=== PATIENT | female | born 1965 | race Caucasian/White ===

== ENCOUNTER 2023-09-08 09:04 | Inpatient (IN) | payer OTHER, SELFPAY ==
[2023-09-08] VITALS (8 sets, daily range): BP systolic 120–149; BP diastolic 60–77; PULSE 58–84; RESP 16–18; TEMP 36.4–36.8; O2SAT 98–100; BMI 31.5; BMI 32.1
--- NOTE | 2023-09-08 09:25 | EDS_ITS ---
HPI History of Present Illness Chief Complaint: Abn Labs Informant: patient Narrative Narrative: 57-year-old female presenting to the emergency room with abdominal pain and elevated liver enzymes. Patient states that last she felt feverish and did not feel well but she felt better on Wednesday. She has been experiencing some anorexia and mild nausea. She notes a mild epigastric right upper quadrant discomfort. She saw nurse practitioner on Wednesday and had blood work drawn. Was noted that her total bilirubin was 2.6 alkaline phosphatase 311 AST of 311 ALT is 695 BUN/creatinine within normal limits. Is noted to have normal differential lipase was noted to be normal at 57 with a amylase of 61. TSH T4 noted to be stable. She does take supplemental Synthroid. There was a urine culture showed less than 10,000 units of Streptococcus anginosus. Patient was sent to the emergency room for evaluation. She has had prior cholecystectomy 2005 in [place]. She does note some dark urine. She has felt constipated over the past several days. Over the time where she felt fever she did not complain of any sore throat neck discomfort shoulder discomfort diarrhea. [facility] Medical History (Updated 09/08/23 @ 14:[address] West Villarreal, DO) Hypothyroidism Home Medications ?Medication ?Instructions ?Recorded ?Last Taken ?Type cetirizine 5 mg-pseudoephedrine ER 1 tab PO DAILY PRN allergy symptoms 09/08/23 09/07/23 History 120 mg tablet,extended release,12hr ketotifen fumarate 0.025 % (0.035 1 drp EACH EYE DAILY PRN allergy 09/08/23 09/07/23 History %) eye drops (Allergy Eye symptoms (ketotifen)) levothyroxine 75 mcg tablet 75 mcg PO DAILY thyroid 09/08/23 09/08/23 History multivitamin 1 tab PO DAILY supplement 09/08/23 09/04/23 History omega 3-dja-ouq-fish oil 60 mg-90 1 cap PO DAILY supplement 09/08/23 09/04/23 History mg-500 mg capsule (Fish Oil) phenylephrine HCl 0.5 % nasal 1 spray intranasal Q8H PRN nasal 09/08/23 09/07/23 History spray (Otis-Synephrine congestion (phenylephrine)) Allergy/AdvReac Type Severity Reaction Status Date / Time No Known Allergies Allergy Verified 09/08/23 09:05 Surgical History History of cholecystectomy Social History Smoking Status: Never smoker EXAM Physical Exam Const Vital Signs: 09/08/23 09:05 09/08/23 11:05 09/08/23 13:13 Temperature 97.6 F L Temperature Source Temporal Pulse Rate 84 80 63 Respiratory Rate 18 16 18 Blood Pressure 149/77 H 138/68 H 120/60 Blood Pressure Mean 101 91 80 Pulse Ox 100 99 99 Oxygen Delivery Method Room Air Room Air Positive well nourished and well developed General Appearance ED: well developed HEENT Reports normocephalic, head/scalp atraumatic and moist mucous membranes Eyes PERRL and EOMs intact bilaterally Eyes Narrative: Mild scleral icterus Neck no lymphadenopathy, supple and no JVD Resp normal respiratory effort and clear to auscultation bilaterally Cardio regular rate, regular rhythm and no murmurs GI normal to inspection, nondistended, normoactive bowel sounds and non-tender Palpation: soft Back/Spine no CVA tenderness and normal ROM Extremity normal to inspection General Extremety ED: Negative for edema General Extremity: Negative for edema Neuro oriented x3 and CN's II-XII intact bilaterally Sensorium / Orientation: alert Motor Exam: strength 5/5 throughout Psych mental status grossly normal Mood & Affect: Negative for depressed or tearful Skin no rashes or lesions noted and no wounds MDM MDM MDM Narrative Medical decision making narrative: Differential diagnosis includes but not limited to choledocholithiasis ascending cholangitis acute hepatitis pancreatic mass acute pancreatitis bile ducts stricture. White count is 4.2 no left shift. Hemoglobin 13.4 and platelet count of 213. LFTs show total bilirubin 3.6 with a direct bilirubin of 2.87 AST 153 ALT 552 alk phos 344 lipase is 90 urinalysis with 3+ bacteria no nitrates 0-5 white cells 0-5 red cells 0-[address] abdomen pelvis was obtained. Please see radiologist read for full details and impression. No ascites were noted. No abnormal liver contour noted. No ACE pancreatic fluid seen. Ultrasound of the gallbladder was obtained which demonstrates a common bile duct of 1.04. Case was discussed with Dr. Varma from gastroenterology. I also dis cussed the case with Dr. Stewart from the hospitalist service. Plan is admission. History & Record Review Discussion w/independent historian: Patient and Significant other Lab Data Attestation: I reviewed the patient's lab results. Labs: Laboratory Results - last 24 hr 09/08/23 09/08/23 09:28 09:35 WBC 4.2 L RBC 4.87 Hgb 13.4 Hct 42.6 MCV 87.5 MCH 27.5 MCHC 31.5 L RDW Std Deviation 45.8 H RDW Coeff of Zoe 14.4 Plt Count 213 MPV 9.6 Immature Gran % (Auto) 0.700 Neut % (Auto) 58.1 Lymph % (Auto) 26.4 [place] % (Auto) 8.6 Eos % (Auto) 5.0 Baso % (Auto) 1.2 H Absolute Neuts (auto) 2.4 Absolute Lymphs (auto) 1.11 Nucleated RBC % 0 Sodium 136 Potassium 3.4 L Chloride 105 Carbon Dioxide 29.0 Anion Gap 2 L BUN 12 Creatinine 1.01 Estim Creat Clear Calc 70.43 Est GFR (MDRD) Af Amer 72 Est GFR (MDRD) Non-Af 60 BUN/Creatinine Ratio 11.9 Glucose 93 Calcium 9.2 Total Bilirubin 3.60 H Direct Bilirubin 2.87 H AST 153 H ALT 552 H Alkaline Phosphatase 344 H Total Protein 8.3 H Albumin 3.3 Globulin 5.0 H Lipase 90 H Urine Color Yellow Urine Clarity Sl. Cloudy Urine pH 6.5 Ur Specific [place] 1.010 Urine Protein 15 H Urine Glucose (UA) Normal Urine Ketones Negative Urine Occult Blood Negative Urine Nitrite Negative Urine Bilirubin 1 H Urine Urobilinogen 1 H Ur Leukocyte Esterase 500 H Urine RBC 0-5 SEEN Urine WBC 0-5 SEEN Ur Squamous Epith Cells 0-5 SEEN Calcium Oxalate Crystal RARE Urine Bacteria 3+ Urine Mucus 0 SEEN Radiography Diagnostic Testing: Clinical Impression(s) from Imaging Studies Abdomen/Pelvis CT 09/08/23 09:25 IMPRESSION: Findings suggestive of a varices in the region of the splenic hilum. Prior cholecystectomy. I suspect a partially calcified 1.3 cm splenic artery aneurysm. Electronically Signed: Camden Alcala MD at 10:37 EDT , Management Discussion w/another healthcare provider: Hospitalist (Dr Ma) and Postage Machine Operator (Dr Varma (GI)) Discharge Plan Dx/Rx/DC Orders Clinical Impression: Common bile duct dilation, Abdominal pain, Elevated liver enzymes Disposition Disposition: Acute Care Hospital [facility]
--- NOTE | 2023-09-08 09:25 | CT_ITS ---
STUDY: CT ABDOMEN AND PELVIS WITH CONTRAST REASON FOR EXAM: Female, 57 years old. Elevated liver enzymes and pain RADIATION DOSAGE (If Supplied By Facility): CTDIvol = ( 17.38 ) mGy, DLP = ( 1146.30 ) mGycm TECHNIQUE: Transaxial images were obtained from the dome of the diaphragm to the symphysis pubis without oral contrast. IV 100mL Isovue-300 was administered. Sagittal and coronal images were reconstructed. Individualized dose optimization techniques were used for this CT. COMPARISON: None. FINDINGS: Mild degree of increased linear markings at the lung bases suggestive of linear bibasilar atelectasis. The visualized portions of the heart are within normal limits. Normal liver. There are surgical clips in the gallbladder fossa consistent with a prior cholecystectomy. Normal spleen. Questionable varices in the region of the splenic hilum. Normal pancreas. Normal bilateral adrenal glands. Normal right kidney. Normal left kidney. There is a small hiatal hernia. Normal small intestine. Normal colon. The appendix is visualized and appears normal. Normal abdominal aorta. I suspect a partially calcified 1.3 cm splenic artery aneurysm. Normal inferior vena cava. Normal retroperitoneum. Normal urinary bladder. ESSURE device is seen in both fallopian tubes. Normal abdominal wall. Normal osseous structures. CT/Abdomen/Pelvis W IV Cont ONLY IMPRESSION: Findings suggestive of a varices in the region of the splenic hilum. Prior cholecystectomy. I suspect a partially calcified 1.3 cm splenic artery aneurysm. Electronically Signed: Camden Alcala MD at 10:37 EDT ,
[2023-09-08 09:40] LABS: Absolute Lymphocyte Count 1.11 X10^3/uL (0.83-4.51); Absolute Neutrophil Count 2.4 X10^3/uL (2.0-7.7); Basophil# 0.05 X10^3/uL; Basophil% 1.2 % (0-1); Eosinophil# 0.21 X10^3/uL; Hematocrit 42.6 % (37-47); Hemoglobin 13.4 g/dL (12.0-15.0); Lymphocyte # 1.11 X10^3/ul (0.83-4.51); Lymphocyte % 26.4 % (19-41); Mean Corp Hgb Conc 31.5 g/dL (32-36); Mean Corpuscular Hgb 27.5 pg (27.0-32.0); Mean Corpuscular Volume 87.5 fL (81-99); Mean Platelet Vol. 9.6 fl (6.2-12.0); Monocyte# 0.36 X10^3/uL; Monocyte% 8.6 % (0-10); NRBC Flagged by Analyzer 0 % (0-5); Neutrophil # 2.44 X10^3/uL (2.7-7.7); Neutrophil % 58.1 % (47-70); Platelet Count 213 K/mm3 (150-450); RBC Distribution Width CV 14.4 % (11.6-14.6); RBC Distribution Width SD 45.8 fl (35.1-43.9); Red Blood Count 4.87 M/mm3 (4.2-5.4); White Blood Count 4.2 K/mm3 (4.4-11.0)
[2023-09-08 09:46] LABS: Mucous, Urine 0 SEEN /hpf (<or=2+)
[2023-09-08] MEDS: 0.9% Normal Saline (1000mL) 1,000 ML 200 ML IV (09:46)
[2023-09-08 09:56] LABS: Color, Urine Yellow (Yellow); Glucose, Dipstick Normal (Normal); Ketone-Dipstick Negative (Negative); Leukocyte Esterase-Dipstick 500 /ul (Negative); Nitrite-Dipstick Negative (Negative); Occult Blood-Urine Negative /ul (Negative); Protein-Dipstick 15 mg/dl (Negative); Urine Clarity Sl. Cloudy (Clear); Urine Urobilinogen 1 mg/dl (Normal); Urine pH 6.5 (5.0 - 8.0)
[2023-09-08 09:58] LABS: Urine Bilirubin Dipstick 1 mg/dL (Negative)
[2023-09-08 09:58] LABS: AST(SGOT) 153 U/L (15-37); Alanine Aminotransfer ALT/SGPT 552 U/L (13-56); Albumin, Serum 3.3 g/dL (3.2-5.0); Alkaline Phosphatase 344 U/L (45-117); Anion Gap 2 (5-15); BUN 12 mg/dL (7-18); BUN/Creat Ratio 11.9 RATIO (10-20); Bilirubin, Direct 2.87 mg/dL (0.00-0.30); Calcium,Total 9.2 mg/dL (8.5-10.1); Chloride 105 mmol/L (98-107); Creatinine, Serum 1.01 mg/dL (0.55-1.02); EST Glomerular Filtration Rate 60 mL/min (>60); Est Glom Filt Rate - Afr Amer 72 mL/min (>60); Estimated Creatinine Clearance 70.43 ml/min; Glucose 93 mg/dL (74-106); Lipase 90 U/L (13-75); Potassium 3.4 mmol/L (3.5-5.1); Protein, Total 8.3 g/dL (6.4-8.2); Sodium Level 136 mmol/L (136-145)
[2023-09-08 10:02] LABS: Bacteria 3+ /hpf (None Seen)
[2023-09-08 10:03] LABS: Red Blood Cells-Urine 0-5 SEEN /hpf (0-5); Squamous Epithelial Cells - UA 0-5 SEEN /hpf (5-10); White Blood Cells 0-5 SEEN /hpf (0-5)
[2023-09-08 10:04] LABS: Calcium Oxalate Crystals Ur RARE /hpf (<or=2+)
--- NOTE | 2023-09-08 10:40 | US_ITS ---
STUDY: ABDOMINAL ULTRASOUND - RIGHT UPPER QUADRANT REASON FOR VISIT: Female, 57 years old Choledocholithiasis Pain Elevated Liver enzymes -- RUQ PAIN X 3 DAYS TECHNIQUE: Ultrasound evaluation of the right upper quadrant was performed with real-time and static tracy-scale imaging. TECHNICAL QUALITY: Adequate. COMPARISON: Comparison is made with prior CT scan the abdomen and pelvis done earlier today. FINDINGS: Liver: The liver measures 18.1 cm. There is increased echogenicity consistent with fatty infiltration. The bile ducts are within normal limits. There is hepatic color flow. The direction of portal flow is hepatopetal. There is no demonstrated mass lesion. Gallbladder: The patient is status post cholecystectomy. Common Bile Duct (C.B.D.): The common bile duct measures 9 mm. Pancreas: Normal size of the head, body and tail of the pancreas. There is normal echogenicity of the pancreas. There is no demonstrated pancreatic mass or cyst. Right Kidney: Normal size of the right kidney. The right kidney measures 11.2 cm x 5.2 cm x 5.4 cm. Normal renal cortex. The right cortex measures 1.6 cm. There is no demonstrated renal mass or cyst. There is no right hydronephrosis. US/Liver IMPRESSION: Fatty infiltration of the liver. Status post cholecystectomy. Electronically Signed: Camden Alcala MD at 13:23 EDT ,
--- NOTE | 2023-09-08 15:12 | NURSING ---
MED SURG ROSANNE ABD PAIN, ELEVATED LIVER ENZYMES
--- NOTE | 2023-09-08 15:56 | HP.PCM.HOS_ITS ---
HPI - General General Date of Admission: 09/08/23 Date of Service: 09/08/23 Chief Complaint: Abnormal labs, jaundice sent by PCP HPI Narrative ABBIE NUNO, is a 57 F came to ED after found abnormal labs ordered by PCP. Prior to that, she noticed being feverish, temperature 100 Fahrenheit, chills with cold wearing a lot of blanket Th night about a week ago. Then on the weekend she felt loss of appetite, nausea, yellow/dark urine and fatigue. She also had mild abdominal discomfort and she states it is not pain. Mainly in right upper quadrant localized without associated with food or activity with no obvious precipitating or relieving factor. She had lap cholecystectomy in 2005 She saw PCP on Wednesday and ordered blood test and found to have elevated liver chemistry and total bilirubin. In ED she had a test which shows total bili 3.6, direct 2.87 and transaminases this. She had CT abdomen and ultrasound done. She was admitted with plan of ERCP in the morning Vitals in ED acceptable limit. She does not drink alcohol or smoke cigarettes. No substance use No prior history of liver disease or chronic GI disease Family history: Noncontributory to the present illness. No significant gallbladder history in first-degree [facility] Medical History Hypothyroidism Home Medications ?Medication ?Instructions ?Recorded ?Last Taken ?Type cetirizine 5 mg-pseudoephedrine ER 1 tab PO DAILY PRN allergy symptoms 09/08/23 09/07/23 History 120 mg tablet,extended release,12hr ketotifen fumarate 0.025 % (0.035 1 drp EACH EYE DAILY PRN allergy 09/08/23 09/07/23 History %) eye drops (Allergy Eye symptoms (ketotifen)) levothyroxine 75 mcg tablet 75 mcg PO DAILY thyroid 09/08/23 09/08/23 History multivitamin 1 tab PO DAILY supplement 09/08/23 09/04/23 History omega 3-hnf-jyz-fish oil 60 mg-90 1 cap PO DAILY supplement 09/08/23 09/04/23 History mg-500 mg capsule (Fish Oil) phenylephrine HCl 0.5 % nasal 1 spray intranasal Q8H PRN nasal 09/08/23 09/07/23 History spray (Otis-Synephrine congestion (phenylephrine)) Allergy/AdvReac Type Severity Reaction Status Date / Time No Known Allergies Allergy Verified 09/08/23 09:05 Surgical History History of colonoscopy H/O arthroscopic knee surgery History of cholecystectomy Social History Smoking Status: Never smoker ROS ROS Narrative Constitutional: Reports fatigue and weakness. No fever. HEENT: Reports systems reviewed and no addt'l complaints, except as documented Respiratory/Chest: No acute shortness of breath or respiratory distress or wheezing. CVS: No chest pain or tightness Gastrointestinal: Mild RUQ abdominal discomfort. Denies coffee ground emesis, hematemesis or vomiting Genitourinary: Denies burning urination or new urinary tract symptoms Musculoskeletal: Denies acute joint pain or limited range of motion. No acute injury Neurologic: Denies seizure-like symptoms. skin: No ulcer. No rash Endocrinology: Reports systems reviewed and no addt'l complaints, except as documented Hematologic/Lymphatic: Reports systems reviewed and no addt'l complaints, except as documented Rest 14 ROS are negative except as mentioned in HPI Vital Signs Vital Signs Vital Signs: 09/08/23 09:05 09/08/23 11:05 09/08/23 13:13 Temperature 97.6 F L Temperature Source Temporal Pulse Rate 84 80 63 Respiratory Rate 18 16 18 Blood Pressure 149/77 H 138/68 H 120/60 Blood Pressure Mean 101 91 80 Pulse Ox 100 99 99 Oxygen Delivery Method Room Air Room Air 09/08/23 15:00 09/08/23 15:26 Temperature 98.2 F Temperature Source Pulse Rate 64 65 Respiratory Rate 18 16 Blood Pressure 135/64 H 132/64 H Blood Pressure Mean 87 86 Pulse Ox 100 99 Oxygen Delivery Method Room Air Weight Weight: 204 lb 12.951 oz Body Mass Index (BMI) 32.1 Physical Exam Narrative General: Alert, Oriented x3, Cooperative HEENT: Atraumatic, PERRLA, EOMI, Normocephalic Oral: No Gingival or Mucosal Lesions/ Ulcerations Neck: Supple, No JVD, Negative Carotid Bruits Chest wall/Lungs: Air entry diminished in bilateral lung bases. No crepitation/rhonchi Cardiovascular: Regular rate, Regular Rhythm, Normal S1, Normal S2, No M/G/R Abdomen: Bowel Sounds Present, Soft, mild right subcostal tenderness at the midclavicular line. Non-Distended : No dysuria. No renal angle tenderness. No suprapubic tenderness. Extremities: No edema, Capillary Refill Less than 3 Seconds Skin: No rashes, No breakdown Musculoskeletal: No Tenderness to Palpation of Joints or Extremities Neurological: Cranial nerves II-XII grossly intact, DTR 2+/4. No acute focal neurological deficit. Psych/Mental Status: Normal Affect, Appropriate. Results Lab / Micro Data 09/08/23 09:28 09/08/23 09:28 Labs: Laboratory Results - last 24 hr 09/08/23 09:28: WBC 4.2 L, RBC 4.87, Hgb 13.4, Hct 42.6, MCV 87.5, MCH 27.5, M CHC 31.5 L, RDW Std Deviation 45.8 H, RDW Coeff of Zoe 14.4, Plt Count 213, MPV 9.6, Immature Gran % (Auto) 0.700, Neut % (Auto) 58.1, Lymph % (Auto) 26.4, [place] % (Auto) 8.6, Eos % (Auto) 5.0, Baso % (Auto) 1.2 H, Absolute Neuts (auto) 2.4, Absolute Lymphs (auto) 1.11, Nucleated RBC % 0, Sodium 136, Potassium 3.4 L, Chloride 105, Carbon Dioxide 29.0, Anion Gap 2 L, BUN 12, Creatinine 1.01, Estim Creat Clear Calc 70.43, Est GFR (MDRD) Af Amer 72, Est GFR (MDRD) Non-Af 60, BUN/Creatinine Ratio 11.9, Glucose 93, Calcium 9.2, Total Bilirubin 3.60 H, D irect Bilirubin 2.87 H, AST 153 H, ALT 552 H, Alkaline Phosphatase 344 H, Total Protein 8.3 H, Albumin 3.3, Globulin 5.0 H, Lipase 90 H 09/08/23 09:35: Urine Color Yellow, Urine Clarity Sl. Cloudy, Urine pH 6.5, Ur Specific [place] 1.010, Urine Protein 15 H, Urine Glucose (UA) Normal, Urine Ketones Negative, Urine Occult Blood Negative, Urine Nitrite Negative, Urine Bilirubin 1 H, Urine Urobilinogen 1 H, Ur Leukocyte Esterase 500 H, Urine RBC 0- 5 SEEN, Urine WBC 0-5 SEEN, Ur Squamous Epith Cells 0-5 SEEN, Calcium Oxalate Crystal RARE, Urine Bacteria 3+, Urine Mucus 0 SEEN Imaging Radiology Impression Abdomen/Pelvis CT 09/08/23 09:25 IMPRESSION: Findings suggestive of a varices in the region of the splenic hilum. Prior cholecystectomy. I suspect a partially calcified 1.3 cm splenic artery aneurysm. Electronically Signed: Camden Alcala MD at 10:37 EDT , Assessment & Plan Assessment/Plan (1) Elevated liver enzymes: (2) Common bile duct dilation: PLAN: Plan This is 57-year-old female came to ED for abnormal liver chemistry along with jaundice and mild right upper quadrant abdominal discomfort 1. Fever, obstructive jaundice, mild RUQ discomfort most likely cholangitis due to possible choledocholithiasis: Patient is being admitted to Medrg floor. Liver chemistry shows total bilirubin 3.6, direct bilirubin 2.87, ALT 552, AST 153, alkaline phosphatase 344. Lipase 90. CT abdomen/pelvis shows prior cholecystectomy. Varices in the region of the splenic hilum. Liver ultrasound was also done not reported but shows CBD 10 mm. Liver size 18 cm. Patient started on IV fluid normal saline, IV antibiotic cefepime. Patient does not have abdominal pain. Tylenol as needed for fever. GI consulted for possible ERCP in the morning. N.p.o. past midnight. Clinically does not seem patient has acute pancreatitis 2. Incidental finding of partially calcified 1.3 cm splenic artery aneurysm. CT also reported varices in the region of splenic hilum, significance unclear. Possible or suspicion non liver related portal hypertension, outpatient workup 3. Hypothyroidism: On levothyroxine. Continued Living will/advanced directive/end of life care: Patient does not have living will or advanced directive. She does not have diarrhea power of real estate attorney for health but present in the ER is next of kin. After discussion of benefits/risks procedures involved with full code, DNR CC arrest and DNR CC, the patient opted for full code. Patient does want artificial life support including intubation, tube feed, ventilator and/chest compression, central venous catheter, vasopressor and DC shock if needed Total time spent in [id number] encounter in discussion of advanced directive 17 minutes. Laboratory Results 09/08/23 09:28: WBC 4.2 L, RBC 4.87, Hgb 13.4, Hct 42.6, MCV 87.5, MCH 27.5, M CHC 31.5 L, RDW Std Deviation 45.8 H, RDW Coeff of Zoe 14.4, Plt Count 213, MPV 9.6, Immature Gran % (Auto) 0.700, Neut % (Auto) 58.1, Lymph % (Auto) 26.4, [place] % (Auto) 8.6, Eos % (Auto) 5.0, Baso % (Auto) 1.2 H, Absolute Neuts (auto) 2.4, Absolute Lymphs (auto) 1.11, Nucleated RBC % 0, Sodium 136, Potassium 3.4 L, Chloride 105, Carbon Dioxide 29.0, Anion Gap 2 L, BUN 12, Creatinine 1.01, Estim Creat Clear Calc 70.43, Est GFR (MDRD) Af Amer 72, Est GFR (MDRD) Non-Af 60, BUN/Creatinine Ratio 11.9, Glucose 93, Calcium 9.2, Magnesium 2.3, Total Bilirubin 3.60 H, Direct Bilirubin 2.87 H, AST 153 H, ALT 552 H, Alkaline Phosphatase 344 H, Total Protein 8.3 H, Albumin 3.3, Globulin 5.0 H, Lipase 90 H 09/08/23 09:35: Urine Color Yellow, Urine Clarity Sl. Cloudy, Urine pH 6.5, Ur Specific [place] 1.010, Urine Protein 15 H, Urine Glucose (UA) Normal, Urine Ketones Negative, Urine Occult Blood Negative, Urine Nitrite Negative, Urine Bilirubin 1 H, Urine Urobilinogen 1 H, Ur Leukocyte Esterase 500 H, Urine RBC 0- 5 SEEN, Urine WBC 0-5 SEEN, Ur Squamous Epith Cells 0-5 SEEN, Calcium Oxalate Crystal RARE, Urine Bacteria 3+, Urine Mucus 0 SEEN Clinical Impression(s) from Imaging Studies Abdomen/Pelvis CT 09/08/23 09:25 IMPRESSION: Findings suggestive of a varices in the region of the splenic hilum. Prior cholecystectomy. I suspect a partially calcified 1.3 cm splenic artery aneurysm. Electronically Signed: Camden Alcala MD at 10:37 EDT , Charges/Coding Visit Charges Inpatient E&M: 77044 Init Hosp L3 Procedures Hospitalists Procedures: 14441 Advncd Care Plan 30 Min
[2023-09-08 16:10] LABS: Magnesium 2.3 mg/dL (1.6-2.6)
[2023-09-08] MEDS: Cefepime HCl 1 GM in 0.9% Normal Saline (50mL MB+) 50 ML IV ×2 (16:35→20:37)
[2023-09-08] MEDS: KCL 20MEQ in 0.9% NS 20 MEQ/1,000 ML IV.SOLN. 100 MEQ IV (16:35)
[2023-09-08] MEDS: Enoxaparin 40 MG/0.4 ML Syringe SC (16:47)
--- NOTE | 2023-09-08 18:23 | EX.PCM.CON.G ---
HPI Consult Data Date of Consult: 09/08/23 HPI Narrative Reason for Consultation: Jaundice and cholestatic hepatitis HPI Narrative: ABBIE NUNO, is a 57-year-old female presenting to the emergency room with abdominal pain and elevated liver enzymes. Patient states that last she felt feverish and did not feel well but she felt better on Wednesday. She has been experiencing some anorexia and mild nausea. She notes a mild epigastric right upper quadrant discomfort. She saw nurse practitioner on Wednesday and had blood work drawn. Was noted that her total bilirubin was 2.6 alkaline phosphatase 311 AST of 311 ALT is 695 BUN/creatinine within normal limits. It is noted to have normal differential lipase was noted to be normal at 57 with a amylase of 61. TSH T4 noted to be stable. She does take supplemental Synthroid. There was a urine culture showed less than 10,000 units of Streptococcus anginosus. Patient was sent to the emergency room for evaluation. She has had prior cholecystectomy 2005 in [place]. She does note some dark urine. She has felt constipated over the past several days. Over the time where she felt fever she did not complain of any sore throat neck discomfort shoulder discomfort diarrhea. She underwent a CT scan abdomen pelvis which shows dilated common bile duct up to 1 cm. It does not show any clear defects in the distal common bile duct. However her repeat bilirubin is up to 3.2 along with increase in AST and ALT and alkaline phosphatase. Ultrasound of right lower quadrant confirms a very enlarged common bile duct. [facility] Medical History Hypothyroidism Home Medications ?Medication ?Instructions ?Recorded ?Last Taken ?Type cetirizine 5 mg-pseudoephedrine ER 1 tab PO DAILY PRN allergy symptoms 09/08/23 09/07/23 History 120 mg tablet,extended release,12hr ketotifen fumarate 0.025 % (0.035 1 drp EACH EYE DAILY PRN allergy 09/08/23 09/07/23 History %) eye drops (Allergy Eye symptoms (ketotifen)) levothyroxine 75 mcg tablet 75 mcg PO DAILY thyroid 09/08/23 09/08/23 History multivitamin 1 tab PO DAILY supplement 09/08/23 09/04/23 History omega 0-tbw-moh-fish oil 60 mg-90 1 cap PO DAILY supplement 09/08/23 09/04/23 History mg-500 mg capsule (Fish Oil) phenylephrine HCl 0.5 % nasal 1 spray intranasal Q8H PRN nasal 09/08/23 09/07/23 History spray (Otis-Synephrine congestion (phenylephrine)) Allergy/AdvReac Type Severity Reaction Status Date / Time No Known Allergies Allergy Verified 09/08/23 09:05 Surgical History History of colonoscopy H/O arthroscopic knee surgery History of cholecystectomy Social History Smoking Status: Never smoker ROS ROS Narrative Constitutional: Reports fatigue and weakness. No fever. HEENT: Reports systems reviewed and no addt'l complaints, except as documented Respiratory/Chest: No acute shortness of breath or respiratory distress or wheezing. CVS: No chest pain or tightness Gastrointestinal: Mild RUQ abdominal discomfort. Denies coffee ground emesis, hematemesis or vomiting Genitourinary: Denies burning urination or new urinary tract symptoms Musculoskeletal: Denies acute joint pain or limited range of motion. No acute injury Neurologic: Denies seizure-like symptoms. skin: No ulcer. No rash Endocrinology: Reports systems reviewed and no addt'l complaints, except as documented Hematologic/Lymphatic: Reports systems reviewed and no addt'l complaints, except as documented Rest 14 ROS are negative except as mentioned in HPI Physical Exam Narrative General: Alert, Oriented x3, Cooperative HEENT: Atraumatic, PERRLA, EOMI, Normocephalic Oral: No Gingival or Mucosal Lesions/ Ulcerations Neck: Supple, No JVD, Negative Carotid Bruits Chest wall/Lungs: Air entry diminished in bilateral lung bases. No crepitation/rhonchi Cardiovascular: Regular rate, Regular Rhythm, Normal S1, Normal S2, No M/G/R Abdomen: Bowel Sounds Present, Soft, mild right subcostal tenderness at the midclavicular line. Non-Distended : No dysuria. No renal angle tenderness. No suprapubic tenderness. Extremities: No edema, Capillary Refill Less than 3 Seconds Skin: No rashes, No breakdown Musculoskeletal: No Tenderness to Palpation of Joints or Extremities Neurological: Cranial nerves II-XII grossly intact, DTR 2+/4. No acute focal neurological deficit. Psych/Mental Status: Normal Affect, Appropriate. Lab / Micro Data 09/08/23 09:28 09/08/23 09:28 Labs: Laboratory Results - last 24 hr 09/08/23 09:28: WBC 4.2 L, RBC 4.87, Hgb 13.4, Hct 42.6, MCV 87.5, MCH 27.5, MCHC 31.5 L, RDW Std Deviation 45.8 H, RDW Coeff of Zoe 14.4, Plt Count 213, MPV 9.6, Immature Gran % (Auto) 0.700, Neut % (Auto) 58.1, Lymph % (Auto) 26.4, [place] % (Auto) 8.6, Eos % (Auto) 5.0, Baso % (Auto) 1.2 H, Absolute Neuts (auto) 2.4, Absolute Lymphs (auto) 1.11, Nucleated RBC % 0, Sodium 136, Potassium 3.4 L, Chloride 105, Carbon Dioxide 29.0, Anion Gap 2 L, BUN 12, Creatinine 1.01, Estim Creat Clear Calc 70.43, Est GFR (MDRD) Af Amer 72, Est GFR (MDRD) Non-Af 60, BUN/Creatinine Ratio 11.9, Glucose 93, Calcium 9.2, Magnesium 2.3, Total Bilirubin 3.60 H, Direct Bilirubin 2.87 H, AST 153 H, ALT 552 H, Alkaline Phosphatase 344 H, Total Protein 8.3 H, Albumin 3.3, Globulin 5.0 H, Lipase 90 H 09/08/23 09:35: Urine Color Yellow, Urine Clarity Sl. Cloudy, Urine pH 6.5, Ur Specific [place] 1.010, Urine Protein 15 H, Urine Glucose (UA) Normal, Urine Ketones Negative, Urine Occult Blood Negative, Urine Nitrite Negative, Urine Bilirubin 1 H, Urine Urobilinogen 1 H, Ur Leukocyte Esterase 500 H, Urine RBC 0-5 SEEN, Urine WBC 0-5 SEEN, Ur Squamous Epith Cells 0-5 SEEN, Calcium Oxalate Crystal RARE, Urine Bacteria 3+, Urine Mucus 0 SEEN Imaging Radiology Impression Abdomen/Pelvis CT 09/08/23 09:25 IMPRESSION: Findings suggestive of a varices in the region of the splenic hilum. Prior cholecystectomy. I suspect a partially calcified 1.3 cm splenic artery aneurysm. Electronically Signed: Camden Alcala MD at 10:37 EDT , Assessment & Plan Assessment/Plan (1) Elevated liver enzymes: (2) Common bile duct dilation: PLAN: Plan This is 57-year-old female came to ED for abnormal liver chemistry along with jaundice and mild right upper quadrant abdominal discomfort Fever, obstructive jaundice, mild RUQ discomfort most likely cholangitis due to possible choledocholithiasis. This is less likely going to be cholangitis secondary to choledocholithiasis or biliary stricture. Is also less likely to be abnormality at the level of the ampulla or pancreatic head. However her liver enzymes are going in the wrong direction so I think she would benefit from a therapeutic ERCP. Liver chemistry shows total bilirubin 3.6, direct bilirubin 2.87, ALT 552, AST 153, alkaline phosphatase 344. Lipase 90. CT abdomen/pelvis shows prior cholecystectomy. Varices in the region of the splenic hilum. Liver ultrasound was also done not reported but shows CBD 10 mm. Liver size 18 cm. Patient started on IV fluid normal saline, IV antibiotic cefepime. Patient does not have abdominal pain. Incidental finding of partially calcified 1.3 cm splenic artery aneurysm. CT also reported varices in the region of splenic hilum, significance unclear. Possible or suspicion non liver related portal hypertension, outpatient workup I suspect a partially calcified 1.3 cm splenic artery aneurysm. Consider vascular consultation. Charges/Coding Visit Charges Inpatient E&M: 17586 Init Hosp L3
[2023-09-08 19:23] LABS: Internal QC Validated? YES +Cl - CLEAR BKGD; Pregnancy, Urine Negative Negative
[2023-09-09] VITALS (16 sets, daily range): BP systolic 117–136; BP diastolic 58–87; PULSE 55–82; RESP 12–16; TEMP 35.8–36.6; O2SAT 93–100; BMI 32.1
[2023-09-09] MEDS: KCL 20MEQ in 0.9% NS 20 MEQ/1,000 ML IV.SOLN. 100 MEQ IV (02:11)
[2023-09-09] MEDS: Cefepime HCl 1 GM in 0.9% Normal Saline (50mL MB+) 50 ML IV ×3 (05:35→20:33)
[2023-09-09 05:45] LABS: Absolute Lymphocyte Count 1.26 X10^3/uL (0.83-4.51); Basophil# 0.05 X10^3/uL; Basophil% 1.3 % (0-1); Eosinophil# 0.25 X10^3/uL; Eosinophils% 6.4 % (0-5); Hematocrit 39.4 % (37-47); Hemoglobin 12.7 g/dL (12.0-15.0); Lymphocyte # 1.26 X10^3/ul (0.83-4.51); Lymphocyte % 32.2 % (19-41); Mean Corp Hgb Conc 32.2 g/dL (32-36); Mean Corpuscular Hgb 28.3 pg (27.0-32.0); Mean Corpuscular Volume 87.8 fL (81-99); Mean Platelet Vol. 9.6 fl (6.2-12.0); Monocyte# 0.31 X10^3/uL; Monocyte% 7.9 % (0-10); NRBC Flagged by Analyzer 0 % (0-5); Neutrophil # 2.02 X10^3/uL (2.7-7.7); Neutrophil % 51.7 % (47-70); Platelet Count 217 K/mm3 (150-450); RBC Distribution Width CV 14.3 % (11.6-14.6); Red Blood Count 4.49 M/mm3 (4.2-5.4); White Blood Count 3.9 K/mm3 (4.4-11.0)
[2023-09-09 06:17] LABS: AST(SGOT) 127 U/L (15-37); Alanine Aminotransfer ALT/SGPT 446 U/L (13-56); Albumin, Serum 3.1 g/dL (3.2-5.0); Alkaline Phosphatase 309 U/L (45-117); Anion Gap 7 (5-15); BUN 9 mg/dL (7-18); BUN/Creat Ratio 10.5 RATIO (10-20); Bilirubin, Direct 2.48 mg/dL (0.00-0.30); Chloride 108 mmol/L (98-107); Creatinine, Serum 0.86 mg/dL (0.55-1.02); EST Glomerular Filtration Rate 72 mL/min (>60); Est Glom Filt Rate - Afr Amer 87 mL/min (>60); Estimated Creatinine Clearance 83.43 ml/min; Globulin 4.4 g/dL (2.2-4.2); Glucose 100 mg/dL (74-106); Potassium 3.7 mmol/L (3.5-5.1); Protein, Total 7.5 g/dL (6.4-8.2); Sodium Level 140 mmol/L (136-145); Thyroid Stim Hormone (TSH) 3.21 uIU/mL (0.358-3.74)
--- NOTE | 2023-09-09 11:19 | EKG12_ITS ---
Test Reason : PREOP Blood Pressure : / mmHG Vent. Rate : 060 BPM Atrial Rate : 060 BPM P-R Int : 160 ms QRS Dur : 092 ms QT Int : 430 ms P-R-T Axes : 057 017 062 degrees QTc Int : 430 ms Normal sinus rhythm Normal ECG No previous ECGs available Confirmed by Cristian Millan ([id number]), publications editor CHRISTINE YANG ([id number]) on 09/14/2023 6:11:12 AM Referred By: ALEAH Confirmed By:Cristian Millan
--- NOTE | 2023-09-09 11:20 | NURSING ---
pt off unit via bed at 1105 for scheduled procedure
--- NOTE | 2023-09-09 11:24 | PCM.PRE.AN2 ---
ASA Classification* ASA Classification ASA Classification: 2 and E Assessment & Plan Anesthesia* Anesthesia Assessment Anesthesia Assessment: Discussed sedation and/or anesthesia options, risks, benefits, and alternatives with patient/parents/legal guardian/POA. Questions invited. The patient/parents/legal guardian/POA seems to understand and agrees to proceed with anesthesia plan. Reviewed the physical assessment, medical history, allergy history and patient home medications list prior to surgery/procedure/anesthetic and documented any changes. Performed airway and anesthesia risk assessments. Anesthesia Type Anesthesia Type: General (see written pre anesthesia record for full assessment) Pre-Assessment Diagnosis/Proposed Procedure Planned Operative Procedure(s): ercp Anesthesia History Anesthesia History - lacing presser: Anesthesia History - lacing presser Hx Hospitalization Any Problems With Anesthesia Yes: vomiting - does not 09/08/23 15:59 tolerate phenergan - but zofran works well Cholinesterase deficiency No 09/08/23 15:59 You/Your Family Experience No 09/08/23 15:59 fever (hyperthermia) with Relationship Recent Exposure to Contagious No 09/08/23 15:59 Disease Does patient have nerve No 09/08/23 15:59 stimulator Patient instructed to have device shut off --Does patient have Pacemaker No 09/09/23 08:00 or ICD? When Was Last Pacemaker Check QUESTION #4 FULL TEXT: You/Your Family Experience fever (hyperthermia) with Anesthesia Last Oral Intake Last Oral intake: Last Oral Intake NPO since 00:01 09/09/23 08:00 Meds taken in AM with sips of No 09/09/23 08:00 water? Meds patient instructed to take am of surgery PONV PONV - lacing presser: PONV - lacing presser Female HX of Motion Sickness HX of N/V After Surgery Non-Smoker Duration of Surgery greater than 60 minutes Number of Risk Factors PONV Score Height & Weight Height & Weight: Anesthesia: Height & Weight Height 5 ft 7 in 09/09/23 08:00 Weight: 92.9 kg 09/09/23 08:00 Body Mass Index (BMI) 32.1 09/09/23 08:00 Respiratory Assessment Respiratory Assessment - lacing presser: Respiratory Tract Infection Hx - lacing presser Hx Respiratory Tract Infection No 09/08/23 15:59 STOP Sleep Apnea STOP Sleep Apnea - lacing presser: STOP Sleep Apnea - lacing presser Hx Hypertension No 09/08/23 15:48 Hx Sleep Apnea No 09/08/23 15:48 CPAP BIPAP Do you snore loudly (louder No 09/08/23 15:48 than talking or can be heard Do you often feel tired/ No 09/08/23 15:48 fatigued/ sleepy during daytime? Has anyone observed you stop No 09/08/23 15:48 breathing during sleep? STOP Results Negative 09/08/23 15:48 QUESTION #5 FULL TEXT : Do you snore loudly (louder than talking or can be heard through closed doors)? 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 Specify any problems Hx of Preganancy in last 3 No 09/08/23 15:48 Months Nurse Filling Out Transfusion SHESS 09/08/23 15:48 & Questions: Date: 09/08/23 09/08/23 15:48 Time: 15:49 09/08/23 15:48 Patient unable to answer at this time (ie. confused, unrespo /Reproduction History /Reproductive History - lacing presser: /Reproductive Hx- lacing presser Hx Now No 09/08/23 15:59 Gestational Age (in weeks): EDC: Hx Hx Para Hx Section SAB No 09/08/23 15:59 Active Medications Active Medications: Current Medications Generic Name Dose Route Start Last Admin Trade Name Freq PRN Reason Stop Dose Admin Acetaminophen 650 mg 09/08/23 15:40 Acetaminophen 325 Mg Tablet PO Q6H PRN PRN Pain 1-10 Or Fever >100.7 Enoxaparin Sodium 40 mg 09/08/23 15:40 09/08/23 16:47 Enoxaparin 40 Mg/0.4 Ml Syringe SC 40 mg DAILY TOMASA Administration Potassium Chloride/Sodium Chloride 20 meq in 1,000 mls @ 100 mls/hr 09/08/23 15:40 09/09/23 02:11 IV 09/09/23 11:39 100 mls/hr .Q10H TOMASA Administration Cefepime HCl 1 gm/ Sodium 50 mls @ 100 mls/hr 09/08/23 15:40 09/09/23 06:06 Chloride IV Infused Q8 TOMASA Infusion Sodium Chloride 250 mls @ 15 mls/hr 09/08/23 15:41 IV .[id number] PRN Additional IVPB Infusion Sodium Chloride 250 mls @ 15 mls/hr 09/08/23 15:41 IV .[id number] PRN Saline Flush Levothyroxine Sodium 75 mcg 09/09/23 06:00 09/09/23 05:35 Levothyroxine 75 Mcg Tablet PO Not Given DAILY@0600 TOMASA Nitroglycerin 0.4 mg 09/08/23 15:40 Nitroglycerin (Inpatient Use) 0.4 Mg Tab.Subl SL Q5M PRN CARDIAC/CHEST PAIN Polyethylene Glycol 17 gm 09/09/23 10:00 Polyethylene Glycol 3350 17 Gm Packet PO DAILY TOMASA Prochlorperazine Edisylate 5 mg 09/08/23 15:40 Prochlorperazine 10 Mg/2 Ml Vial IV Q4H PRN PRN Breakthrough nausea/vomiting Sodium Chloride 10 - 40 ml 09/08/23 15:41 0.9% Saline Lock 10 Ml Syringe IV UD PRN SALINE FLUSH Anesthesia Focused Assessment* Temperature: 97.5 F Pulse Rate: 61 Blood Pressure: 128/87 Respiratory Rate: 12 Pulse Ox: 100 Airway Assessment Mouth opens: >3 cm Mallampati Score: II Focused Labs Anesthesia Preop lab: CBC WBC 3.9 K/mm3 (4.4-11.0) L 09/09/23 05:20 RBC 4.49 M/mm3 (4.2-5.4) 09/09/23 05:20 Hgb 12.7 g/dL (12.0-15.0) 09/09/23 05:20 Hct 39.4 % (37-47) 09/09/23 05:20 Plt Count 217 K/mm3 (150-450) 09/09/23 05:20 CHEMISTRY Potassium 3.7 mmol/L (3.5-5.1) 09/09/23 05:20 Sodium 140 mmol/L (136-145) 09/09/23 05:20 Magnesium 2.3 mg/dL (1.6-2.6) 09/08/23 09:28 BUN 9 mg/dL (7-18) 09/09/23 05:20 Creatinine 0.86 mg/dL (0.55-1.02) 09/09/23 05:20 Glucose 100 mg/dL (74-106) 09/09/23 05:20 TSH 3.21 uIU/mL (0.358-3.74) 09/09/23 05:20 COAG Urine Test Negative Negative 09/08/23 09:35 Review of Systems (Anesthesia) ROS Narrative System reviewed and no additional complaints, except as documented. [facility] Medical History Hypothyroidism Home Medications ?Medication ?Instructions ?Recorded ?Last Taken ?Type cetirizine 5 mg-pseudoephedrine ER 1 tab PO DAILY PRN allergy symptoms 09/08/23 09/07/23 History 120 mg tablet,extended release,12hr ketotifen fumarate 0.025 % (0.035 1 drp EACH EYE DAILY PRN allergy 09/08/23 09/07/23 History %) eye drops (Allergy Eye symptoms (ketotifen)) levothyroxine 75 mcg tablet 75 mcg PO DAILY thyroid 09/08/23 09/08/23 History multivitamin 1 tab PO DAILY supplement 09/08/23 09/04/23 History omega 1-dwu-qmr-fish oil 60 mg-90 1 cap PO DAILY supplement 09/08/23 09/04/23 History mg-500 mg capsule (Fish Oil) phenylephrine HCl 0.5 % nasal 1 spray intranasal Q8H PRN nasal 09/08/23 09/07/23 History spray (Otis-Synephrine congestion (phenylephrine)) Allergy/AdvReac Type Severity Reaction Status Date / Time No Known Allergies Allergy Verified 09/08/23 09:05 Surgical History History of colonoscopy H/O arthroscopic knee surgery History of cholecystectomy Social History Smoking Status: Never smoker
--- NOTE | 2023-09-09 11:30 | FLU_PTH ---
PATIENT: ABBIE NUNO LOC: MS3 U#:[id number] AGE/SX: 57/F [place] [facility] [place]: Dr. Eliseo Bueno DO : 1965 BED: 1 DIS: 09/10/2023 SPEC #: [id number] RECD: 09/09/23 13:16 STATUS: TOLU RENicole #: [id number] TAI: 09/09/23 11:[address]: Eliseo Bueno DEPT: CYTOLOGY RECD BY: Kane Morales ENTERED: 09/09/23 14:57 SP TYPE: Fluid OTHR DR: Latoya Michael, CANE FLUME WATCHMAN-C Dr. Reyes Ma MD Tissues: A - Bile duct, NOS B - Bile duct, NOS Procedures: Special Stain Group II Surgery Specimen Level III Surgery Specimen Level IV Cytospin Fluid HEADER OPERATION: ERCP with brushings PRE-OP DIAGNOSIS: Elevated liver enzymes, common bile duct dilation TISSUE SUBMITTED: A- [place] tip, B- Biliary stricture brushings (slides) DIAGNOSIS CYTOLOGY A. Biliary brush tip (cytospin and cellblock): Negative for malignant cells. B. Biliary stricture brushings (smears): Negative for malignant cells. See comment. MOE/ 09/10/2023 COMMENT B. The specimen is markedly hypocellular. Clinical correlation is suggested. CYTOLOGY STUDY Slides are reviewed. CYTOLOGY GROSS A. Received is one brush tip 0.5 ml of hazy fluid labeled with the patient's name and and designated per the requisition as Biliary brush tip. Submitted for cytology preparation including cell block. B. Received are 3 smears labeled with the patient's name and designated per the requisition as Biliary stricture brushings. Submitted for staining. Mr 09/09/2023 TC:5 CPT: 76900,[id number]
--- NOTE | 2023-09-09 11:41 | PCM.PN.HOSP ---
Reason for Visit Reason for Visit: Diagnoses Other specified diseases of biliary tract (09/08/23) Abnormal levels of other serum enzymes (09/08/23) Subjective Subjective Saw patient at bedside this morning, present. Patient was sitting up comfortably in bedside chair, conversing normally, in no acute distress. Denied any abdominal pain or discomfort at this morning. Was looking forward to having the scope done as she was starting to feel hungry. Denied any other acute concerns morning. Objective Data Objective Data Vital Signs: Vital Signs Temp Pulse Resp BP Pulse Ox O2 Del Method 97.5 F L 61 12 128/87 H 100 Room Air 09/09/23 11:24 09/09/23 11:24 09/09/23 11:24 09/09/23 11:24 09/09/23 11:09/09/23 08:00 Oxygen Delivery Method Room Air Weight: 92.9 kg Body Mass Index (BMI) 32.1 Intake & Output: Intake and Output for Last 24 Hours 09/07/23 09/08/23 09/09/23 23:59 23:59 23:59 Intake Total 1100 / 1100 1010 / 1010 Balance 1100 / 1100 1010 / 1010 Lab / Micro Data 09/09/23 05:20 09/09/23 05:20 Labs: Laboratory Results - last 24 hr 09/08/23 09:28: Magnesium 2.3 09/08/23 09:35: Urine Test Negative 09/09/23 05:20: WBC 3.9 L, RBC 4.49, Hgb 12.7, Hct 39.4, MCV 87.8, MCH 28.3, MCHC 32.2, RDW Std Deviation 46.0 H, RDW Coeff of Zoe 14.3, Plt Count 217, MPV 9.6, Immature Gran % (Auto) 0.500, Neut % (Auto) 51.7, Lymph % (Auto) 32.2, [place] % (Auto) 7.9, Eos % (Auto) 6.4 H, Baso % (Auto) 1.3 H, Absolute Neuts (auto) 2.0, Absolute Lymphs (auto) 1.26, Nucleated RBC % 0, Sodium 140, Potassium 3.7, Chloride 108 H, Carbon Dioxide 25.0, Anion Gap 7, BUN 9, Creatinine 0.86, Estim Creat Clear Calc 83.43, Est GFR (MDRD) Af Amer 87, Est GFR (MDRD) Non-Af 72, BUN/Creatinine Ratio 10.5, Glucose 100, Calcium 9.0, Total Bilirubin 3.30 H, Direct Bilirubin 2.48 H, AST 127 H, ALT 446 H, Alkaline Phosphatase 309 H, Total Protein 7.5, Albumin 3.1 L, Globulin 4.4 H, TSH 3.21 Physical Exam Const alert, oriented x3 and no apparent distress Constitutional Narrative: Pleasant middle-age female, obese, sitting up comfortably in bedside chair, conversing normally, no acute distress. General Appearance: cooperative and comfortable HEENT normocephalic, head/scalp atraumatic, hearing grossly normal bilaterally, nasal mucous membranes and turbinates normal and moist oral mucous membranes Eyes PERRL, EOMs intact bilaterally and conjunctivae normal Neck full ROM Chest inspection of chest normal Resp normal respiratory effort, normal air movement, no use of accessory muscles and clear to auscultation bilaterally Cardio regular rate, regular rhythm, no murmurs and peripheral pulses 2+ throughout GI GI Narrative: Mild right upper quadrant tenderness to palpation. Abdomen otherwise soft and nondistended. Normal bowel sounds. Back/Spine normal ROM Extremity normal to inspection, full ROM and no pedal edema Skin no rashes or lesions noted Neuro moves all extremities and no focal motor deficits Speech: speech normal Psych mental status grossly normal Assessment & Plan Assessment/Plan (1) Choledocholithiasis with acute cholecystitis: PLAN: Plan Patient is a 57-year-old female who presented [facility] ED on 09/08/2023 with recent fever/chills and abnormal outpatient labs. 1. Acute cholangitis secondary to choledocholithiasis; history of cholecystectomy (2005) ? GI following. S/p ERCP on 09/08 that showed a dilated biliary tree, choledocholithiasis found with complete removal accomplished by biliary sphincterotomy and balloon extraction, 1 temporary stent placed into common bile duct. Monitor closely postoperatively. Follow-up a.m. labs tomorrow. Continue IV cefepime for now. 2. Incidental finding of partially calcified 1.3 cm splenic artery aneurysm ? Noted on CT abdomen pelvis on admission. Unclear significance. Appreciate GI recommendations. Chronic medical conditions: ? Obesity: BMI 32 on admit. Encouraged lifestyle modifications. Complicates hospital course, care and prognosis. ? Hypothyroidism: Continue home Synthroid. DVT prophylaxis: Lovenox CODE STATUS: Full code, verified Expected disposition: Home, 1 to 2 days Total clinical time spent by myself addressing the patient's medical issues, reviewing all the data, and collaborating with patient's care team: 35 minutes. Charges/Coding Visit Charges Inpatient E&M: 66893 Subs Hosp L2
--- NOTE | 2023-09-09 12:10 | RAD_ITS ---
STUDY: ERCP. REASON FOR EXAM: Female, 57 years old. ERCP FLUOROSCOPY TIME (if supplied): ( 1 minute and 53 seconds ) minutes/seconds. 30.18 mGy. TECHNIQUE: An ERCP was performed by the resident care director. Imaging was provided. COMPARISON: None. FINDINGS: Contrast is seen within the common bile duct and central intrahepatic biliary ducts. RAD/ERCP Biliary/Pancreas IMPRESSION: Unremarkable ERCP. Electronically Signed: Camden Alcala MD at 15:30 EDT ,
--- NOTE | 2023-09-09 13:03 | PCM.POST.ANE ---
Anesthesia: Postop Eval I Current Vital Signs Temperature: 97 F Pulse Rate: 80 Blood Pressure: 136/67 Respiratory Rate: 16 Pulse Ox: 96 Oxygen Delivery Method: Room Air Assessment Airway patent: Yes Spontaneous unlabored respirations: Yes Mental status: Awake nausea: No Vomiting: No Anesthesia Complication: No Fluid Hydration Crystalloid volume administer (ml): 900 Total IV fluid infused: 900 Progress Note Anesthesia document: Postop Eval 1 completed: Yes
--- NOTE | 2023-09-09 13:05 | OP.CCLET_ITS ---
09/09/2023 Drake Lilly Re : ERCP procedure for Yris Rowell Dear Alec This procedure was performed on August. My impressions and recommendations are as follows: Impressions : - The entire biliary tree was dilated, acquired. - The patient has had a cholecystectomy. - Choledocholithiasis was found. Complete removal was accomplished by biliary sphincterotomy and balloon extraction. - A biliary sphincterotomy was performed. - The biliary tree was swept. - The lower third of the main bile duct and the left main hepatic duct were successfully dilated. - One temporary stent was placed into the common bile duct. - Cells for cytology obtained in the lower third of the main duct. - A pancreatic sphincterotomy was performed. - The ventral pancreatic duct was swept and debris was found. - One temporary stent was placed into the ventral pancreatic duct. Recommendations : My findings are described in the full procedure note, which is enclosed. If I can be of further assistance, please feel free to contact me at . Sincerely, Titus Varma DO 09/09/2023 1:05:08 PM This report has been signed electronically.
--- NOTE | 2023-09-09 13:05 | OP.ERCP_ITS ---
Patient Name: Yris Rowell Procedure Date: 09/09/2023 11:21 AM Date of : 1965 Age: 57 Procedure: ERCP Indications: Bile duct stone(s), Abdominal pain of suspected biliary origin, Jaundice, Elevated liver enzymes Providers: Titus Varma DO Medicines: Monitored Anesthesia Care Patient Profile: This is a 57 year old female. Refer to note in patient chart for documentation of history and physical. Patient has symptoms of acute right upper quadrant abdominal pain and acute jaundice. This patient has no history of previous ERCP. Complications: No immediate complications. Procedure: Pre-Anesthesia Assessment: - Prior to the procedure, a History and Physical was performed, and patient medications and allergies were reviewed. The patient is competent. The risks and benefits of the procedure and the sedation options and risks were discussed with the patient. All questions were answered and informed consent was obtained. Patient identification and proposed procedure were verified by the physician in the pre-procedure area. Mental Status Examination: alert and oriented. Airway Examination: normal oropharyngeal airway and neck mobility. Prophylactic Antibiotics: The patient does not require prophylactic antibiotics. Prior Anticoagulants: The patient has taken no anticoagulant or antiplatelet agents. ASA Grade Assessment: II - A patient with mild systemic disease. After reviewing the risks and benefits, the patient was deemed in satisfactory condition to undergo the procedure. The anesthesia plan was to use general anesthesia. Immediately prior to administration of medications, the patient was re-assessed for adequacy to receive sedatives. The heart rate, respiratory rate, oxygen saturations, blood pressure, adequacy of pulmonary ventilation, and response to care were monitored throughout the procedure. The physical status of the patient was re-assessed after the procedure. After obtaining informed consent, the scope was passed under direct vision. Throughout the procedure, the patient's blood pressure, pulse, and oxygen saturations were monitored continuously. The Duodenoscope was introduced through the mouth, and advanced to the duodenum and used to inject contrast into the bile duct and ventral pancreatic duct. The ERCP was accomplished without difficulty. The patient tolerated the procedure well. A pancreatic duct stent was placed as a prophylactic measure during today's ERCP procedure. Scope In: 12:12:14 PM Scope Out: 12:47:47 PM Total Procedure Duration Time 0 hours 35 minutes 33 seconds Findings: The channel development director film was normal. The esophagus was successfully intubated under direct vision. The scope was advanced to a normal major papilla in the descending duodenum without detailed examination of the pharynx, larynx and associated structures, and upper GI tract. The upper GI tract was grossly normal. The bile duct was deeply cannulated with the short-nosed traction sphincterotome. Contrast was injected. I personally interpreted the bile duct images. There was brisk flow of contrast through the ducts. Image quality was excellent. Contrast extended to the entire biliary tree. Opacification of the entire biliary tree was successful. The maximum diameter of the ducts was 6 mm. The lower third of the main bile duct contained one stone, which was 5 mm in diameter. The entire biliary tree was diffusely dilated, acquired. The largest diameter was 11mm. A cholecystectomy had been performed. A straight Roadrunner wire was passed into the biliary tree. A 5 mm biliary sphincterotomy was made with a braided traction (standard) sphincterotome using ERBE electrocautery. The sphincterotomy oozed blood. The biliary tree was swept with a 12 mm balloon starting at the bifurcation. Sludge was swept from the duct. All stones were removed. Dilation of the lower third of the main bile duct and the left main hepatic duct with 5-7-8.5 Fr catheter dilator was successful. One 10 Fr by 7 cm temporary stent was placed 5 cm into the common bile duct. Bile flowed through the stent. The stent was in good position. Cells for cytology were obtained by brushing in the lower third of the main bile duct. The ventral pancreatic duct was deeply cannulated with the short-nosed traction sphincterotome. Contrast was injected. Opacification of the entire pancreatic ductal system was successful. The maximum diameter of the ducts was 3 mm. The entire opacified area was normal. A long 0.025 inch Jagwire was passed into the ventral pancreatic duct. A 5 mm ventral pancreatic sphincterotomy was made with a traction (standard) sphincterotome using ERBE electrocautery. There was no post-sphincterotomy bleeding. To find object(s) the ventral pancreatic duct was swept with a 6 mm balloon starting at the pancreatic duct in the body of the pancreas. Debris was swept from the duct. One 5 Fr by 7 cm temporary stent with two external flaps and a single internal flap was placed 5 cm into the ventral pancreatic duct. Clear fluid flowed through the stent. The stent was in good position. Impression: - The entire biliary tree was dilated, acquired. - The patient has had a cholecystectomy. - Choledocholithiasis was found. Complete removal was accomplished by biliary sphincterotomy and balloon extraction. - A biliary sphincterotomy was performed. - The biliary tree was swept. - The lower third of the main bile duct and the left main hepatic duct were successfully dilated. - One temporary stent was placed into the common bile duct. - Cells for cytology obtained in the lower third of the main duct. - A pancreatic sphincterotomy was performed. - The ventral pancreatic duct was swept and debris was found. - One temporary stent was placed into the ventral pancreatic duct. Procedure Code(s): --- Professional --- 06902, Endoscopic retrograde cholangiopancreatography (ERCP); with placement of endoscopic stent into biliary or pancreatic duct, including pre- and post-dilation and guide wire passage, when performed, including sphincterotomy, when performed, each stent [id number], 59, Endoscopic retrograde cholangiopancreatography (ERCP); with placement of endoscopic stent into biliary or pancreatic duct, including pre- and post-dilation and guide wire passage, when performed, including sphincterotomy, when performed, each stent [id number], Endoscopic retrograde cholangiopancreatography (ERCP); with removal of calculi/debris from biliary/pancreatic duct(s) 97770, 26, Endoscopic catheterization of the biliary ductal system, radiological supervision and interpretation 70522, Unlisted procedure, biliary tract CPT copyright 2021 [employer]. All rights reserved. The codes documented in this report are preliminary and upon manager hair review may be revised to meet current compliance requirements. Titus Varma DO 09/09/2023 1:05:08 PM This report has been signed electronically. Number of Addenda: 0 Note Initiated On: 09/09/2023 11:21 AM
--- NOTE | 2023-09-09 13:45 | PCM.POSTANE2 ---
Anesthesia Postop Eval I Sum Postop Eval Completion status Anesthesia document: Postop Eval 1 completed: Yes Anesthesia Postop Eval I Summary Anesthesia Postop Eval I Summary: Anesthesia Postop Eval I: Assessment Summary Airway patent Yes 09/09/23 13:11 [email or web address] Spontaneous unlabored Yes 09/09/23 13:11 [email or web address] respirations Mental status Awake 09/09/23 13:11 [email or web address] nausea No 09/09/23 13:11 [email or web address] Vomiting No 09/09/23 13:11 [email or web address] Anesthesia Postop Eval I: Fluid Summary Crystalloid volume administer 900 09/09/23 13:11 [email or web address] (ml) Colloids volume administered ( ml) Blood Product volume administered (ml) Total IV fluid infused 900 09/09/23 13:11 [email or web address] Anesthesia Postop Eval I: Summary Notes Anesthesia Complication No 09/09/23 13:11 [email or web address] Anesthesia Complication Comment: Post-operative progress note Anesthesia: Postop Eval II Evaluation Mental status: Awake Pain Level: 0 nausea: No Vomiting: No Complications Anesthesia Complication: No
[2023-09-09] MEDS: Acetaminophen 325 MG Tablet 650 MG PO ×2 (14:18→20:38)
--- NOTE | 2023-09-09 15:04 | CASEMGMT ---
KERRIE LAZARO Assessment Face to Face with patient for initial transition planning/care coordination assessment. RN CM introduced self and role at [facility], pt voices understanding. Pt is A&Ox4 and is resting comfortably in bed and is calm. Pt at bedside. Care providers, pharmacy, and demographics verified. Admitting dx: Jaundice, Fever PCP: Latoya Michael Specialists: Denies Preferred Pharmacy: [facility] Insurance: [employer] Prescription Benefit: Yes LNOK: Dean Rowell (H) Living Arrangements: Pt lives with her and 2 children (ages 23 and 25) in a split level home with around 6 steps in between floors. There are 4-5 steps to enter the home. ADLs/IADLs: Ind Transportation: Self, DME: Thermometer. BP Cuff. Denies further needs HHC/SNF: Denies history or needs Pt?s goal: Home Plan: Home no needs. 6-Click is 24. Pt denies needs at home and states feeling safe returning once medically ready. CM to follow. Emerald Bautista RN, CM
[2023-09-09] MEDS: Lactated Ringers 1,000 ML 250 ML IV ×2 (17:46→20:33)
[2023-09-09] MEDS: Ketorolac 30 MG/ML Syringe IV (17:53)
[2023-09-09] MEDS: 0.9% Saline Lock 10 ML Syringe IV (17:53)
--- NOTE | 2023-09-09 18:23 | EX.PCM.PN.GI ---
Subjective Subjective I came up and saw the patient after the patient underwent ERCP. She is having some headache and I told I will give her some Toradol. She tolerates clear liquid diet so it is okay to advance her. I will put her on some IV fluids to see if it helps her headache and also to clear out the contrast from a ERCP today. Objective Data Objective Data Vital Signs: Vital Signs Temp Pulse Resp BP Pulse Ox O2 Del Method 97.4 F L 57 L 15 133/80 H 99 Room Air 09/09/23 16:00 09/09/23 16:00 09/09/23 16:00 09/09/23 16:00 09/09/23 16:00 09/09/23 16:00 Oxygen Delivery Method Room Air Weight: 204 lb 12.951 oz Body Mass Index (BMI) 32.1 Intake & Output: Intake and Output for Last 24 Hours 09/07/23 09/08/23 09/09/23 23:59 23:59 23:59 Intake Total 1100 / 1100 1841.67 / 1841.67 Balance 1100 / 1100 1841.67 / 1841.67 Lab / Micro Data 09/09/23 05:20 09/09/23 05:20 Labs: Laboratory Results - last 24 hr 09/08/23 09:35: Urine Test Negative 09/09/23 05:20: WBC 3.9 L, RBC 4.49, Hgb 12.7, Hct 39.4, MCV 87.8, MCH 28.3, MCHC 32.2, RDW Std Deviation 46.0 H, RDW Coeff of Zoe 14.3, Plt Count 217, MPV 9.6, Immature Gran % (Auto) 0.500, Neut % (Auto) 51.7, Lymph % (Auto) 32.2, [place] % (Auto) 7.9, Eos % (Auto) 6.4 H, Baso % (Auto) 1.3 H, Absolute Neuts (auto) 2.0, Absolute Lymphs (auto) 1.26, Nucleated RBC % 0, Sodium 140, Potassium 3.7, Chloride 108 H, Carbon Dioxide 25.0, Anion Gap 7, BUN 9, Creatinine 0.86, Estim Creat Clear Calc 83.43, Est GFR (MDRD) Af Amer 87, Est GFR (MDRD) Non-Af 72, BUN/Creatinine Ratio 10.5, Glucose 100, Calcium 9.0, Total Bilirubin 3.30 H, Direct Bilirubin 2.48 H, AST 127 H, ALT 446 H, Alkaline Phosphatase 309 H, Total Protein 7.5, Albumin 3.1 L, Globulin 4.4 H, TSH 3.21 Radiography Diagnostic Testing: Radiology Impression Liver Ultrasound 09/08/23 10:40 IMPRESSION: Fatty infiltration of the liver. Status post cholecystectomy. Electronically Signed: Camden Alcala MD at 13:23 EDT , Endo Retro Cholangiopancreatogram 09/09/23 12:10 IMPRESSION: Unremarkable ERCP. Electronically Signed: Camden Alcala MD at 15:30 EDT , Physical Exam Narrative General: Alert, Oriented x3, Cooperative HEENT: Atraumatic, PERRLA, EOMI, Normocephalic Oral: No Gingival or Mucosal Lesions/ Ulcerations Neck: Supple, No JVD, Negative Carotid Bruits Chest wall/Lungs: Air entry diminished in bilateral lung bases. No crepitation/rhonchi Cardiovascular: Regular rate, Regular Rhythm, Normal S1, Normal S2, No M/G/R Abdomen: Bowel Sounds Present, Soft, mild right subcostal tenderness at the midclavicular line. Non-Distended : No dysuria. No renal angle tenderness. No suprapubic tenderness. Extremities: No edema, Capillary Refill Less than 3 Seconds Skin: No rashes, No breakdown Musculoskeletal: No Tenderness to Palpation of Joints or Extremities Neurological: Cranial nerves II-XII grossly intact, DTR 2+/4. No acute focal neurological deficit. Psych/Mental Status: Normal Affect, Appropriate. Assessment & Plan Assessment/Plan (1) Elevated liver enzymes: (2) Common bile duct dilation: PLAN: Plan This is 57-year-old female came to ED for abnormal liver chemistry along with jaundice and mild right upper quadrant abdominal discomfort Fever, obstructive jaundice, mild RUQ discomfort most likely cholangitis and she was discovered to have choledocholithiasis status post ERCP with sphincterotomy, stone removal and stent placement. Recommend to recheck LFTs in the morning. Continue lactated Ringer's tonight and Toradol as needed. All questions answered from patient's and the patient tonight. Charges/Coding Visit Charges Inpatient E&M: 20508 Subs Hosp L2
[2023-09-10] MEDS: Lactated Ringers 1,000 ML 250 ML IV ×3 (00:49→08:47)
[2023-09-10] MEDS: Cefepime HCl 1 GM in 0.9% Normal Saline (50mL MB+) 50 ML IV (04:37)
[2023-09-10] MEDS: Acetaminophen 325 MG Tablet 650 MG PO (04:37)
[2023-09-10] MEDS: Levothyroxine 75 MCG Tablet PO (04:41)
[2023-09-10 04:43] VITALS: BP 125/70; PULSE 57; RESP 16; TEMP 36.7; O2SAT 100
[2023-09-10 07:22] VITALS: O2SAT 96
[2023-09-10 07:37] LABS: Hematocrit 38.3 % (37-47); Hemoglobin 12.1 g/dL (12.0-15.0); Mean Corp Hgb Conc 31.6 g/dL (32-36); Mean Corpuscular Hgb 27.9 pg (27.0-32.0); Mean Corpuscular Volume 88.5 fL (81-99); Mean Platelet Vol. 10.3 fl (6.2-12.0); Platelet Count 222 K/mm3 (150-450); RBC Distribution Width CV 14.3 % (11.6-14.6); RBC Distribution Width SD 46.5 fl (35.1-43.9); Red Blood Count 4.33 M/mm3 (4.2-5.4); White Blood Count 8.4 K/mm3 (4.4-11.0)
[2023-09-10 08:02] LABS: ALB/GLOB Ratio 0.7 RATIO (0.9-2.4); AST(SGOT) 123 U/L (15-37); Alanine Aminotransfer ALT/SGPT 374 U/L (13-56); Albumin, Serum 2.9 g/dL (3.2-5.0); Alkaline Phosphatase 277 U/L (45-117); Anion Gap 7 (5-15); BUN 9 mg/dL (7-18); BUN/Creat Ratio 12.3 RATIO (10-20); Calcium,Total 9.1 mg/dL (8.5-10.1); Chloride 105 mmol/L (98-107); Creatinine, Serum 0.73 mg/dL (0.55-1.02); EST Glomerular Filtration Rate 87 mL/min (>60); Est Glom Filt Rate - Afr Amer 105 mL/min (>60); Estimated Creatinine Clearance 98.29 ml/min; Globulin 4.1 g/dL (2.2-4.2); Glucose 109 mg/dL (74-106); Potassium 3.4 mmol/L (3.5-5.1); Sodium Level 138 mmol/L (136-145)
[2023-09-10 08:19] VITALS: BP 134/65; PULSE 58; RESP 18; TEMP 36.2; O2SAT 100
[2023-09-10] MEDS: Loratadine 10 MG Tablet PO (08:25)
[2023-09-10] MEDS: Polyethylene Glycol 3350 17 GM PACKET PO (08:25)
--- NOTE | 2023-09-10 11:02 | PCM.DC ---
Discharge Instructions Diet Discharge Diet: No restrictions Activity Discharge Activity: No Restrictions Follow Up Care Test Results: Test results from this visit will be discussed in further detail at your follow-up appointment, if applicable. Discharge Plan Admission Admit Date/Time: 09/08/23 15:12 Primary Reason for Your Visit: Fevers, abdominal pain and abnormal labs Attending Provider: Eliseo Bueno Primary Care Provider: Latoya Michael Consulting Providers: Reyes Ma Instructions Additional Instructions / Restrictions: Please take the 2 antibiotics noted below for 4 days to complete a 7-day course of antibiotics total. Please have a repeat CMP drawn in 5-7 days. Discharge Orders/Prescriptions Prescriptions: New ciprofloxacin HCl [Cipro] 500 mg tablet 500 mg PO BID 4 Days Qty: 8 0RF metronidazole 500 mg tablet 500 mg PO TID 4 Days Qty: 12 0RF Continued levothyroxine 75 mcg tablet 75 mcg PO DAILY ketotifen fumarate [Allergy Eye (ketotifen)] 0.025 % (0.035 %) drops 1 drp EACH EYE DAILY PRN (Reason: allergy symptoms) omega 7-mxg-lsa-fish oil [Fish Oil] 60-90-500 mg capsule 1 cap PO DAILY multivitamin Tablet 1 tab PO DAILY Otis-Synephrine (phenylephrine) 0.5 % spray,non-aerosol 1 spray intranasal Q8H PRN (Reason: nasal congestion) cetirizine-pseudoephedrine 5-120 mg tablet extended release 12 hr 1 tab PO DAILY PRN (Reason: allergy symptoms) Other Ambulatory Orders: Comprehensive Metabolic Profil (Routine) Timeframe: 1 Week Facility: [facility] - Location: Laboratory Ordered By: Dr. Eliseo Bueno Referrals / Follow Up: Latoya Michael, HOURLY SIGN LANGUAGE INTERPRETER-C [Primary Care Provider] - Disposition Disposition (needs filled in before D/C Order can be placed): Home, Self Care
--- NOTE | 2023-09-10 11:02 | PCM.DC.SUM ---
Providers Date of Admission: 09/08/23 Date of Discharge: 09/10/23 Primary Care Physician: FANI Lilly Consultations 09/08/23 15:40 Consult: Gastroenterology Routine Consulting Provider: Armaan Gastroenterology Reason for Consult: possible choledocholithiasis with cholangitis EMERGENT Consult: No MD Notified: Yes Date Notified: 09/08/23 Time Notified: 15:17 Method of Notification: ED Physician Initiated Reason For Visit: JAUNDICE, FEVER Diagnosis Discharge Diagnosis (1) Elevated liver enzymes: Status: Acute Code(s): R74.8 - Abnormal levels of other serum enzymes (2) Common bile duct dilation: Status: Acute Code(s): K83.8 - Other specified diseases of biliary tract (3) Choledocholithiasis with acute cholecystitis: Status: Acute Code(s): K80.42 - Calculus of bile duct with acute cholecystitis without obstruction Medications at Discharge Home Medications cetirizine 5 mg-pseudoephedrine ER 120 mg tablet,extended release,12hr 1 tab PO DAILY PRN allergy symptoms 09/08/23 ketotifen fumarate 0.025 % (0.035 %) eye drops (Allergy Eye (ketotifen)) 1 drp EACH EYE DAILY PRN allergy symptoms 09/08/23 levothyroxine 75 mcg tablet 75 mcg PO DAILY thyroid 09/08/23 multivitamin 1 tab PO DAILY supplement 09/08/23 omega 9-bsm-sjn-fish oil 60 mg-90 mg-500 mg capsule (Fish Oil) 1 cap PO DAILY supplement 09/08/23 phenylephrine HCl 0.5 % nasal spray (Oits-Synephrine (phenylephrine)) 1 spray intranasal Q8H PRN nasal congestion 09/08/23 ciprofloxacin HCl 500 mg tablet (Cipro) 500 mg PO BID 4 days #8 tabs 09/10/23 metronidazole 500 mg tablet 500 mg PO TID 4 days #12 tabs 09/10/23 Hospital Course Operations ERCP Procedures - (CT abdomen pelvis with IV contrast, liver ultrasound) Summary of Care Provided Minutes Spent on Discharge: 35 Hospital Course: Patient is a 57-year-old female who presented [facility] ED on 09/08/2023 with recent fever/chills and abnormal outpatient labs. Hospital course as noted below. Discharged home in stable condition on 09/09. 1. Acute cholangitis secondary to choledocholithiasis; history of cholecystectomy (2005) ? GI followed. S/p ERCP on 09/08 that showed a dilated biliary tree, choledocholithiasis found with complete removal accomplished by biliary sphincterotomy and balloon extraction, 1 temporary stent placed into common bile duct. Did well postoperatively, passing gas and tolerating regular diet by morning of 09/09. Repeat labs on 09/09 with downtrending LFTs and otherwise stable. Treated with IV cefepime while inpatient, discharged on p.o. ciprofloxacin and Flagyl with plan to complete 7-day course of antibiotics total, stop date 09/13. Repeat CMP in 1 week. Follow-up with GI per their recommendations. 2. Incidental finding of partially calcified 1.3 cm splenic artery aneurysm ? Noted on CT abdomen pelvis on admission. Unclear significance. Further monitoring per GI in outpatient setting. Chronic medical conditions: ? Obesity: BMI 32 on admit. Encouraged lifestyle modifications. Complicated hospital course, care and prognosis. ? Hypothyroidism: Continue home Synthroid. Total clinical time spent by myself addressing the patient's medical issues, reviewing all the data, and collaborating with patient's care team: 35 minutes. Physical Exam Const alert, oriented x3 and no apparent distress Constitutional Narrative: Pleasant middle-age female, obese, sitting up comfortably in bedside chair, conversing normally, no acute distress. General Appearance: cooperative and comfortable HEENT normocephalic, head/scalp atraumatic, hearing grossly normal bilaterally, nasal mucous membranes and turbinates normal and moist oral mucous membranes Eyes PERRL, EOMs intact bilaterally and conjunctivae normal Neck full ROM Chest inspection of chest normal Resp normal respiratory effort, normal air movement, no use of accessory muscles and clear to auscultation bilaterally Cardio regular rate, regular rhythm, no murmurs and peripheral pulses 2+ throughout GI GI Narrative: Mild right upper quadrant tenderness to palpation. Abdomen otherwise soft and nondistended. Normal bowel sounds. Stable. Back/Spine normal ROM Extremity normal to inspection, full ROM and no pedal edema Skin no rashes or lesions noted Neuro moves all extremities and no focal motor deficits Speech: speech normal Psych mental status grossly normal Weight / BMI Weight Weight: 92.9 kg Body Mass Index (BMI) 32.1 ABG / Lab / Microbiology Data 09/10/23 06:26 09/10/23 06:26 Laboratory: Laboratory Results - last 24 hr 09/10/23 06:26: WBC 8.4, RBC 4.33, Hgb 12.1, Hct 38.3, MCV 88.5, MCH 27.9, MCHC 31.6 L, RDW Std Deviation 46.5 H, RDW Coeff of Zoe 14.3, Plt Count 222, MPV 10.3, Sodium 138, Potassium 3.4 L, Chloride 105, Carbon Dioxide 26.0, Anion Gap 7, BUN 9, Creatinine 0.73, Estim Creat Clear Calc 98.29, Est GFR (MDRD) Af Amer 105, Est GFR (MDRD) Non-Af 87, BUN/Creatinine Ratio 12.3, Glucose 109 H, Calcium 9.1, Total Bilirubin 2.50 H, AST 123 H, ALT 374 H, Alkaline Phosphatase 277 H, Total Protein 7.0, Albumin 2.9 L, Globulin 4.1, Albumin/Globulin Ratio 0.7 L Radiography Diagnostic Testing: Radiology Impression Liver Ultrasound 09/08/23 10:40 IMPRESSION: Fatty infiltration of the liver. Status post cholecystectomy. Electronically Signed: Camden Alcala MD at 13:23 EDT , Endo Retro Cholangiopancreatogram 09/09/23 12:10 IMPRESSION: Unremarkable ERCP. Electronically Signed: Camden Alcala MD at 15:30 EDT , Meaningful Use Info Meaningful Use Meaningful Use Diagnoses (Choose all that apply): None applicable Ischemic Stroke Statin Dosing Therapy Reference: STATIN DOSE THERAPY REFERENCE: * Patients > 75 years receive moderate or high dose statin therapy. * Patients 75 years or YOUNGER should receive HIGH intensity statin dose unless contraindicated. You will be required to document reason for non-treatment if statin daily dose does not meet guidelines. HIGH DOSE STATIN THERAPY DAILY Atorvastatin > than or = to 40 mg Rosuvastatin > than or = to 20 mg Amlodipine + Atorvastatin > than or = to 2.5/40 mg Ezetimibe + Simvastatin 10/80 mg Simvastatin 80mg Discharge Plan Admission Admit Date/Time: 09/08/23 15:12 Primary Reason for Your Visit: Fevers, abdominal pain and abnormal labs Attending Provider: Eliseo Bueno Primary Care Provider: Latoya Michael Consulting Providers: Reyes Ma Instructions Additional Instructions / Restrictions: Please take the 2 antibiotics noted below for 4 days to complete a 7-day course of antibiotics total. Please have a repeat CMP drawn in 5-7 days. Discharge Orders/Prescriptions Prescriptions: New ciprofloxacin HCl [Cipro] 500 mg tablet 500 mg PO BID 4 Days Qty: 8 0RF metronidazole 500 mg tablet 500 mg PO TID 4 Days Qty: 12 0RF Continued levothyroxine 75 mcg tablet 75 mcg PO DAILY ketotifen fumarate [Allergy Eye (ketotifen)] 0.025 % (0.035 %) drops 1 drp EACH EYE DAILY PRN (Reason: allergy symptoms) omega 4-svb-vgw-fish oil [Fish Oil] 60-90-500 mg capsule 1 cap PO DAILY multivitamin Tablet 1 tab PO DAILY Otis-Synephrine (phenylephrine) 0.5 % spray,non-aerosol 1 spray intranasal Q8H PRN (Reason: nasal congestion) cetirizine-pseudoephedrine 5-120 mg tablet extended release 12 hr 1 tab PO DAILY PRN (Reason: allergy symptoms) Other Ambulatory Orders: Comprehensive Metabolic Profil (Routine) Timeframe: 1 Week Facility: [facility] - Location: Laboratory Ordered By: Dr. Eliseo Bueno Referrals / Follow Up: Latoya Michael, AUTOMOTIVE LEASING SALES REPRESENTATIVE-C [Primary Care Provider] - Disposition Disposition (needs filled in before D/C Order can be placed): Home, Self Care Charges/Coding Visit Charges Inpatient E&M: 81732 Disch Hosp >30min
--- NOTE | 2023-09-10 12:44 | PHA.DC_ITS ---
Pharmacy [facility] has performed discharge medication reconciliation and counseling for this patient. The patient's discharge medication list was reviewed for discrepancies and discrepancies were resolved. The patient was counseled on the following discharge medications and changes in medications for homegoing were reviewed. The Reason for Use, instructions for use, and potential side effects were reviewed for all new medications. The patient's questions regarding all of their medications were answered. 1. Ciprofloxacin 500 mg PO BID x 4 days 2. Metronidazole 500 mg PO TID x 4 days The patient was able to verbally demonstrate an understanding of their discharge medications. The patient was counselled on new medications by pharmacy director Cheryl. Medications at Discharge Home Medications cetirizine 5 mg-pseudoephedrine ER 120 mg tablet,extended release,12hr 1 tab PO DAILY PRN allergy symptoms 09/08/23 ketotifen fumarate 0.025 % (0.035 %) eye drops (Allergy Eye (ketotifen)) 1 drp EACH EYE DAILY PRN allergy symptoms 09/08/23 levothyroxine 75 mcg tablet 75 mcg PO DAILY thyroid 09/08/23 multivitamin 1 tab PO DAILY supplement 09/08/23 omega 2-wvb-ltm-fish oil 60 mg-90 mg-500 mg capsule (Fish Oil) 1 cap PO DAILY supplement 09/08/23 phenylephrine HCl 0.5 % nasal spray (Otis-Synephrine (phenylephrine)) 1 spray intranasal Q8H PRN nasal congestion 09/08/23 ciprofloxacin HCl 500 mg tablet (Cipro) 500 mg PO BID 4 days #8 tabs 09/10/23 metronidazole 500 mg tablet 500 mg PO TID 4 days #12 tabs 09/10/23
--- NOTE | 2023-09-10 17:22 | EX.PCM.PN.GI ---
Subjective Subjective Patient underwent ERCP yesterday for obstructive jaundice. She was discovered to have choledocholithiasis. Currently she has not had any abdominal pain. I placed her on 250 cc of LR overnight. She is tolerating a diet. She would like to go home. Objective Data Objective Data Vital Signs: Vital Signs Temp Pulse Resp BP Pulse Ox O2 Del Method 97.2 F L 58 L 18 134/65 H 100 Room Air 09/10/23 08:19 09/10/23 08:19 09/10/23 08:19 09/10/23 08:19 09/10/23 08:19 09/10/23 08:20 Oxygen Delivery Method Room Air Weight: 204 lb 12.951 oz Body Mass Index (BMI) 32.1 Intake & Output: Intake and Output for Last 24 Hours 09/08/23 09/09/23 09/10/23 23:59 23:59 23:59 Intake Total 1100 / 1100 2805.83 / 2805.83 4716.67 / 4716.67 Balance 1100 / 1100 2805.83 / 2805.83 4716.67 / 4716.67 Lab / Micro Data 09/10/23 06:26 09/10/23 06:26 Labs: Laboratory Results - last 24 hr 09/10/23 06:26: WBC 8.4, RBC 4.33, Hgb 12.1, Hct 38.3, MCV 88.5, MCH 27.9, MCHC 31.6 L, RDW Std Deviation 46.5 H, RDW Coeff of Zoe 14.3, Plt Count 222, MPV 10.3, Sodium 138, Potassium 3.4 L, Chloride 105, Carbon Dioxide 26.0, Anion Gap 7, BUN 9, Creatinine 0.73, Estim Creat Clear Calc 98.29, Est GFR (MDRD) Af Amer 105, Est GFR (MDRD) Non-Af 87, BUN/Creatinine Ratio 12.3, Glucose 109 H, Calcium 9.1, Total Bilirubin 2.50 H, AST 123 H, ALT 374 H, Alkaline Phosphatase 277 H, Total Protein 7.0, Albumin 2.9 L, Globulin 4.1, Albumin/Globulin Ratio 0.7 L Physical Exam Const alert, oriented x3 and no apparent distress Constitutional Narrative: Pleasant middle-age female, obese, sitting up comfortably in bedside chair, conversing normally, no acute distress. General Appearance: cooperative and comfortable HEENT normocephalic, head/scalp atraumatic, hearing grossly normal bilaterally, nasal mucous membranes and turbinates normal and moist oral mucous membranes Eyes PERRL, EOMs intact bilaterally and conjunctivae normal Neck full ROM Chest inspection of chest normal Resp normal respiratory effort, normal air movement, no use of accessory muscles and clear to auscultation bilaterally Cardio regular rate, regular rhythm, no murmurs and peripheral pulses 2+ throughout GI GI Narrative: Mild right upper quadrant tenderness to palpation. Abdomen otherwise soft and nondistended. Normal bowel sounds. Stable. Back/Spine normal ROM Extremity normal to inspection, full ROM and no pedal edema Skin no rashes or lesions noted Neuro moves all extremities and no focal motor deficits Speech: speech normal Psych mental status grossly normal Assessment & Plan Assessment/Plan (1) Choledocholithiasis with acute cholecystitis: PLAN: Plan Patient is a 57-year-old female who presented [facility] ED on 09/08/2023 with recent fever/chills and abnormal outpatient labs. Acute cholangitis secondary to choledocholithiasis; history of cholecystectomy (2005) ? S/p ERCP on 09/08 that showed a dilated biliary tree, choledocholithiasis found with complete removal accomplished by biliary sphincterotomy and balloon extraction, 1 temporary stent placed into common bile duct. Patient is okay to DC home. Continue antibiotics for 7 days total. To Charges/Coding Visit Charges Inpatient E&M: 64106 Subs Hosp L3
== END 2023-09-10 13:11 | disposition home or self-care (01) | DRG 445 ==
LOC: ED 14:53 → MS3 15:27
PROVIDERS: Internal Medicine Gastroenterology; Admitting Provider Internal Medicine; Emergency Provider Emergency Medicine; PCP Nurse Practitioner Family; Visit Provider Hospitalist
PROC: 0FC98ZZ Extirpation of Matter from Common Bile Duct, Via Natural or Artificial Opening Endoscopic (ICD-10-PCS; CPT 43260; principal; 2023-09-09 11:10)
DX: K80.42 Calculus of bile duct with acute cholecystitis without obstruction (principal); K76.6 Portal hypertension; I72.8 Aneurysm of other specified arteries; E03.9 Hypothyroidism, unspecified; K83.8 Other specified diseases of biliary tract; E66.9 Obesity, unspecified; Z51.5 Encounter for palliative care; R74.8 Abnormal levels of other serum enzymes; Z66 Do not resuscitate; Z68.32 Body mass index [BMI] 32.0-32.9, adult; Z90.49 Acquired absence of other specified parts of digestive tract
CPT/HCPCS: 36415; 74177; 74330; 76000; 76705; 80048; 80053; 80076; 81001; 81025; 83690; 83735; 84443; 85025; 85027; 88108; 88304; 88305; 88313; 93005; 94668; 99284; J7030; J7120; Q9967; A4216; J2405

== ENCOUNTER → 2023-09-15 | Outpatient (CLI) | payer OTHER, SELFPAY ==
[2023-09-15 11:59] LABS: ALB/GLOB Ratio 0.6 RATIO (0.9-2.4); AST(SGOT) 48 U/L (15-37); Alanine Aminotransfer ALT/SGPT 191 U/L (13-56); Albumin, Serum 3.2 g/dL (3.2-5.0); Alkaline Phosphatase 288 U/L (45-117); Anion Gap 6 (5-15); BUN 13 mg/dL (7-18); BUN/Creat Ratio 13.7 RATIO (10-20); Calcium,Total 9.4 mg/dL (8.5-10.1); Chloride 104 mmol/L (98-107); Creatinine, Serum 0.95 mg/dL (0.55-1.02); EST Glomerular Filtration Rate 64 mL/min (>60); Est Glom Filt Rate - Afr Amer 78 mL/min (>60); Globulin 5.2 g/dL (2.2-4.2); Glucose 87 mg/dL (74-106); Potassium 3.4 mmol/L (3.5-5.1); Protein, Total 8.4 g/dL (6.4-8.2); Sodium Level 138 mmol/L (136-145)
== END | disposition home or self-care (01) ==
LOC: LAB 10:49
PROVIDERS: PCP Nurse Practitioner Family; Visit Provider Hospitalist
DX: R74.8 Abnormal levels of other serum enzymes (principal)
CPT/HCPCS: 36415; 80053

== ENCOUNTER 2023-10-09 18:12 | Emergency (ER) | payer OTHER, SELFPAY ==
[2023-10-09 18:12] VITALS: BP 139/78; PULSE 92; RESP 18; TEMP 36.6; O2SAT 99; BMI 33.5
--- NOTE | 2023-10-09 18:29 | EX.ED.DYSGE1 ---
HPI History of Present Illness Chief Complaint: Abd Pain Informant: patient Onset/Context/Timing Onset: Days (3 days) Context: Gradual Onset Narrative Narrative: Patient presents secondary to increasing abdominal pain. 1 month ago she was hospitalized with obstructive jaundice. She had a cholecystectomy in 2005. ERCP 1 month ago revealed choledocholithiasis. She had sphincterotomy performed and has a temporary stent in the common bile duct in the pancreatic duct. Patient states over the past 3 days has been getting pain in the epigastric and right upper quadrant region that is becoming more persistent. Pain does radiate through to her back. She states the pain is not changed when she eats. She has not had fever or chills. She has been taking ibuprofen at home for pain. [facility] Medical History Hypothyroidism Home Medications ?Medication ?Instructions ?Recorded ?Last Taken ?Type cetirizine 5 mg-pseudoephedrine ER 1 tab PO DAILY PRN allergy symptoms 09/08/23 09/07/23 History 120 mg tablet,extended release,12hr ketotifen fumarate 0.025 % (0.035 1 drp EACH EYE DAILY PRN allergy 09/08/23 09/07/23 History %) eye drops (Allergy Eye symptoms (ketotifen)) levothyroxine 75 mcg tablet 75 mcg PO DAILY thyroid 09/08/23 09/08/23 History multivitamin 1 tab PO DAILY supplement 09/08/23 09/04/23 History omega 6-zkn-obj-fish oil 60 mg-90 1 cap PO DAILY supplement 09/08/23 09/04/23 History mg-500 mg capsule (Fish Oil) phenylephrine HCl 0.5 % nasal 1 spray intranasal Q8H PRN nasal 09/08/23 09/07/23 History spray (Otis-Synephrine congestion (phenylephrine)) ciprofloxacin HCl 500 mg tablet 500 mg PO BID 4 days #8 tabs 09/10/23 Unknown Rx (Cipro) metronidazole 500 mg tablet 500 mg PO TID 4 days #12 tabs 09/10/23 Unknown Rx hydrocodone-acetaminophen 5-325mg 1 tab PO Q6H PRN PRN Pain 3 days 10/09/23 Unknown Rx 5mg-325mg #10 TABLETS pantoprazole 40 mg tablet,delayed 40 mg PO DAILY #30 tabs 10/09/23 Unknown Rx release (Protonix) sucralfate 1 gram tablet (Carafate) 1 g PO BID #30 tabs 10/09/23 Unknown Rx Allergy/AdvReac Type Severity Reaction Status Date / Time No Known Allergies Allergy Verified 10/09/23 18:12 Surgical History History of colonoscopy H/O arthroscopic knee surgery History of cholecystectomy Social History Smoking Status: Never smoker ROS ROS ED Constitutional Constitutional ED: Denies chills or fever(s) Eyes Eyes: Denies discharge from eye(s) ENT ENT ED: Denies discharge from eye(s), rhinorrhea or sore throat Cardiovascular Cardiovascular: Denies chest pain or palpitations Respiratory/Chest Respiratory/Chest: Denies cough or dyspnea Gastrointestinal Gastrointestinal: Reports abdominal pain; Denies diarrhea or vomiting Genitourinary Genitourinary ED: Denies dysuria Musculoskeletal Musculoskeletal: Reports back pain; Denies extremity pain Integumentary Denies Abrasions or rash Neurologic Neurologic: Denies headache(s) or weakness Psychiatric Psychiatric: Denies anxiety or depression Allergic/Immunologic Allergic/Immunologic ED: Denies lip swelling or urticaria EXAM Physical Exam Const Vital Signs: 10/09/23 18:12 10/09/23 20:12 Temperature 97.8 F Temperature Source Temporal Pulse Rate 92 77 Respiratory Rate 18 16 Blood Pressure 139/78 H 102/54 L Blood Pressure Mean 98 70 Pulse Ox 99 99 Oxygen Delivery Method Room Air Room Air Positive well nourished and well developed General Appearance ED: well developed HEENT Reports moist mucous membranes Eyes EOMs intact bilaterally Chest Wall inspection of chest normal and palpation of chest normal Resp normal respiratory effort and clear to auscultation bilaterally Cardio regular rate and regular rhythm GI GI Narrative: Abdomen soft with tenderness in the epigastrium as well as in the right upper quadrant. No guarding or rebound. Active bowel sounds are noted. Extremity normal to inspection Neuro oriented x3 and no sensory deficits noted Motor Exam: strength 5/5 throughout Psych mental status grossly normal Skin no rashes or lesions noted MDM MDM MDM Narrative Medical decision making narrative: IV line established. Patient given morphine and Zofran although IV fluids. Labwork obtained to evaluate for leukocytosis, anemia, and electrolyte derangement. History & Record Review Discussion w/independent historian: Patient Lab Data Attestation: I reviewed the patient's lab results. Labs: Laboratory Results - last 24 hr 10/09/23 18:51 WBC 6.4 RBC 4.52 Hgb 12.5 Hct 39.3 MCV 86.9 MCH 27.7 MCHC 31.8 L RDW Std Deviation 42.4 RDW Coeff of Zoe 13.3 Plt Count 220 MPV 9.5 Immature Gran % (Auto) 0.500 Neut % (Auto) 68.2 Lymph % (Auto) 20.8 [place] % (Auto) 6.7 Eos % (Auto) 3.0 Baso % (Auto) 0.8 Absolute Neuts (auto) 4.4 Absolute Lymphs (auto) 1.33 Nucleated RBC % 0 Sodium 140 Potassium 3.7 Chloride 105 Carbon Dioxide 28.0 Anion Gap 7 BUN 23 H Creatinine 0.99 Estim Creat Clear Calc 74.08 Est GFR (MDRD) Af Amer 74 Est GFR (MDRD) Non-Af 61 BUN/Creatinine Ratio 23.1 H Glucose 97 Calcium 8.8 Total Bilirubin 0.50 Direct Bilirubin 0.21 AST 50 H ALT 42 Alkaline Phosphatase 146 H Total Protein 7.8 Albumin 3.4 Globulin 4.4 H Lipase 97 H Radiography Diagnostic Testing: Clinical Impression(s) from Imaging Studies Abdomen/Pelvis CT 10/09/23 19:35 IMPRESSION: No acute findings in the abdomen or pelvis. Pneumobilia status post biliary stent placement. Colonic fecal burden consistent with clinical constipation. Electronically Signed: Dillon Gayle MD at 20:23 EDT , Treatment and Re-Evaluation :: CBC was normal white count 6.4 with normal differential. Hemoglobin is 12.5. Chemistry studies are unremarkable. LFTs reveal an AST of 50 which is stable from her prior values. ALT is 42 which is significantly improved from prior. Alk phos is 146 and bilirubin levels are normal. Lipase is 97, again consistent with her prior values. CT scan of the abdomen pelvis with IV contrast reveals no acute findings. Pneumobilia is noted status post biliary stent placement. Colonic fecal burden consistent with constipation. Test results discussed with the patient. I do not see any evidence of acute worsening of her pancreas or liver function. Patient is taking ibuprofen for chronic back and hip pain. She states she is not necessarily taking any more now than what she had done previously, however I do wonder if she may have some aspect of gastritis causing her pain. I will write her for Protonix and Carafate as well as some [place] at home for pain. Patient will call Dr. Varma's office on Wednesday to update them with her symptoms and hopefully Dr. Varma can review her imaging studies at that time. Patient was given strict return instructions and is comfortable with the plan. Discharge Plan Triage Chief Complaint: Abd Pain ED Provider: Cristiana Spann Dx/Rx/DC Orders Clinical Impression: Upper abdominal pain Instructions: ED Abdominal Pain Unkn Cause Fem Prescriptions: New pantoprazole [Protonix] 40 mg tablet,delayed release (DR/EC) 40 mg PO DAILY Qty: 30 0RF sucralfate [Carafate] 1 gram tablet 1 g PO BID Qty: 30 0RF hydrocodone-acetaminophen 5-325 mg tablet 1 tab PO Q6H PRN PRN (Reason: Pain) 3 Days Qty: 10 0RF No Action levothyroxine 75 mcg tablet 75 mcg PO DAILY ketotifen fumarate [Allergy Eye (ketotifen)] 0.025 % (0.035 %) drops 1 drp EACH EYE DAILY PRN (Reason: allergy symptoms) omega 7-kfq-mkn-fish oil [Fish Oil] 60-90-500 mg capsule 1 cap PO DAILY multivitamin Tablet 1 tab PO DAILY Otis-Synephrine (phenylephrine) 0.5 % spray,non-aerosol 1 spray intranasal Q8H PRN (Reason: nasal congestion) cetirizine-pseudoephedrine 5-120 mg tablet extended release 12 hr 1 tab PO DAILY PRN (Reason: allergy symptoms) ciprofloxacin HCl [Cipro] 500 mg tablet 500 mg PO BID 4 Days Qty: 8 0RF metronidazole 500 mg tablet 500 mg PO TID 4 Days Qty: 12 0RF Primary Care Provider: Latoya Michael Referrals: Latoya Michael, MAX-C [Primary Care Provider] - Titus Varma DO [Med Staff - Active Staff] - 3-5 Days Activity Restrictions/Additional Instructions: As discussed, please contact her friend's office on Wednesday with an update of your symptoms. They can review your ED note and imaging studies. Print Language: Azeri Disposition Disposition: Home, Self Care
[2023-10-09] MEDS: 0.9% Normal Saline (1000mL) 1,000 ML 150 ML IV (18:45)
[2023-10-09] MEDS: Morphine 4 MG/ML Syringe IV (18:46)
[2023-10-09] MEDS: Ondansetron 4 MG/2 ML Vial IV (18:46)
[2023-10-09 19:08] LABS: Absolute Lymphocyte Count 1.33 X10^3/uL (0.83-4.51); Absolute Neutrophil Count 4.4 X10^3/uL (2.0-7.7); Basophil# 0.05 X10^3/uL; Basophil% 0.8 % (0-1); Eosinophil# 0.19 X10^3/uL; Hematocrit 39.3 % (37-47); Hemoglobin 12.5 g/dL (12.0-15.0); Lymphocyte # 1.33 X10^3/ul (0.83-4.51); Lymphocyte % 20.8 % (19-41); Mean Corp Hgb Conc 31.8 g/dL (32-36); Mean Corpuscular Hgb 27.7 pg (27.0-32.0); Mean Corpuscular Volume 86.9 fL (81-99); Mean Platelet Vol. 9.5 fl (6.2-12.0); Monocyte# 0.43 X10^3/uL; Monocyte% 6.7 % (0-10); NRBC Flagged by Analyzer 0 % (0-5); Neutrophil # 4.37 X10^3/uL (2.7-7.7); Neutrophil % 68.2 % (47-70); Platelet Count 220 K/mm3 (150-450); RBC Distribution Width CV 13.3 % (11.6-14.6); RBC Distribution Width SD 42.4 fl (35.1-43.9); Red Blood Count 4.52 M/mm3 (4.2-5.4); White Blood Count 6.4 K/mm3 (4.4-11.0)
[2023-10-09 19:25] LABS: AST(SGOT) 50 U/L (15-37); Alanine Aminotransfer ALT/SGPT 42 U/L (13-56); Albumin, Serum 3.4 g/dL (3.2-5.0); Alkaline Phosphatase 146 U/L (45-117); Anion Gap 7 (5-15); BUN 23 mg/dL (7-18); BUN/Creat Ratio 23.1 RATIO (10-20); Bilirubin, Direct 0.21 mg/dL (0.00-0.30); Calcium,Total 8.8 mg/dL (8.5-10.1); Chloride 105 mmol/L (98-107); Creatinine, Serum 0.99 mg/dL (0.55-1.02); EST Glomerular Filtration Rate 61 mL/min (>60); Est Glom Filt Rate - Afr Amer 74 mL/min (>60); Estimated Creatinine Clearance 74.08 ml/min; Globulin 4.4 g/dL (2.2-4.2); Glucose 97 mg/dL (74-106); Lipase 97 U/L (13-75); Potassium 3.7 mmol/L (3.5-5.1); Protein, Total 7.8 g/dL (6.4-8.2); Sodium Level 140 mmol/L (136-145)
--- NOTE | 2023-10-09 19:35 | CT_ITS ---
INDICATION: RUQ pain EXAMINATION: CT ABDOMEN AND PELVIS WITH CONTRAST - CT Abdomen And Pelvis W/ Contrast Injection TECHNIQUE: Helically acquired images were obtained of the abdomen and pelvis following IV contrast. A radiation dose optimization technique was used for this scan. IV Contrast dosage and agent: 100 cc Isovue-370 Oral contrast: None. COMPARISON: 09/08/2023 FINDINGS: LOWER CHEST: Mild bibasilar dependent changes. No cardiomegaly or pericardial effusion. LIVER: Homogeneous. No focal mass. GALLBLADDER AND BILIARY TREE: Cholecystectomy. Interval placement of biliary stent in the common bile and main pancreatic ducts. Pneumobilia present. PANCREAS: No focal cystic or solid mass. SPLEEN: Normal size without focal cystic or solid mass. Stable partially calcified splenic artery aneurysm. ADRENAL GLANDS: No nodules. KIDNEYS AND URETERS: Normal renal size and position. No hydronephrosis. PERITONEUM: No ascites or free air. BOWEL: Normal appendix. No stomach or bowel distension. Diffusely increased colonic fecal burden. LYMPH NODES: No enlarged mesenteric or retroperitoneal lymph nodes. VESSELS: Aorta is non-dilated. URINARY BLADDER: Unremarkable. REPRODUCTIVE ORGANS: No pelvic masses. Essure device in place. BONES: No acute or aggressive abnormality. CT/Abdomen/Pelvis W IV Cont ONLY IMPRESSION: No acute findings in the abdomen or pelvis. Pneumobilia status post biliary stent placement. Colonic fecal burden consistent with clinical constipation. Electronically Signed: Dillon Gayle MD at 20:23 EDT ,
[2023-10-09 20:12] VITALS: BP 102/54; PULSE 77; RESP 16; O2SAT 99
[2023-10-09 21:06] VITALS: BP 111/77; PULSE 81; RESP 16; TEMP 36.6; O2SAT 99
== END 2023-10-09 21:51 | disposition home or self-care (01) ==
PROVIDERS: Emergency Provider Emergency Medicine; PCP Nurse Practitioner Family; Visit Provider Emergency Medicine
DX: R10.11 Right upper quadrant pain (principal); Z90.49 Acquired absence of other specified parts of digestive tract; R10.13 Epigastric pain; E03.9 Hypothyroidism, unspecified; Z79.899 Other long term (current) drug therapy
CPT/HCPCS: 74177; 80048; 80076; 83690; 85025; 96361; 96374; 96375; 99282; J7030; Q9967; A4216; J2405

== ENCOUNTER 2023-11-18 10:07 | Day surgery (SDC) | payer OTHER, SELFPAY ==
[2023-11-18] VITALS (10 sets, daily range): BP systolic 103–134; BP diastolic 66–76; PULSE 54–74; RESP 16–18; TEMP 36–36.3; O2SAT 95–100; BMI 31.7
--- NOTE | 2023-11-18 | FLU_PTH ---
PATIENT: ABBIE NUNO LOC: EN U#:[id number] AGE/SX: 57/F ROOM: RE11/18/[address]: Dr. Titus Varma DO : 1965 BED: DIS: 11/18/2023 SPEC #: [id number] RECD: 11/18/23 13:10 STATUS: TOLU ASHER #: [id number] TAI: 11/18/23 00:[address]: Titus Varma DEPT: CYTOLOGY RECD BY: Esteban Wolfe ENTERED: 11/18/23 13:11 SP TYPE: Fluid OTHR DR: Latoya Michael, STICK PULLER-C Tissues: A - Pancreatic duct, NOS B - Biliary tract, NOS Procedures: Special Stain Group II Surgery Specimen Level IV Cytospin Fluid HEADER OPERATION: ERCP with stent removal PRE-OP DIAGNOSIS: Choledocholithiasis with acute cholecystitis TISSUE SUBMITTED: A- Pancreatic stent for cytology, B- Biliary stent for cytology DIAGNOSIS CYTOLOGY A. Pancreatic stent fluid for cytology (cytospin and cellblock): Negative for malignant cells. B. Biliary stent fluid for cytology (cytospin and cellblock): Negative for malignant cells. /mr 11/19/2023 CYTOLOGY STUDY Slides are reviewed. CYTOLOGY GROSS A. Received is < 0.5 ml of green thick fluid labeled with the patient's name and and designated per the requisition as Pancreatic stent. Submitted for cytology preparation including cell block. B. Received is <0.5 ml of green thick fluid labeled with the patient's name and and designated per the requisition as Biliary stent. Submitted for cytology preparation including cell block. Mr 11/18/2023 TC:5 CPT: 94314i5,57206m8
[2023-11-18] MEDS: Lactated Ringers 1,000 ML 15 ML IV (10:15)
--- NOTE | 2023-11-18 10:15 | RAD_ITS ---
STUDY: ERCP. REASON FOR EXAM: Female, 57 years old. PAIN, ERCP. Stent placement. FLUOROSCOPY TIME (if supplied): ( 51 seconds ) minutes/seconds. 16.14 mGy. 8 images were obtained. TECHNIQUE: An ERCP was performed by the chief dispatcher. COMPARISON: None. FINDINGS: The biliary stent was removed. Contrast was injected. No intraluminal filling defect is seen. RAD/ERCP Biliary/Pancreas IMPRESSION: Removal of the common bile duct stent. Electronically Signed: Camden Alcala MD at 15:20 EDT ,
--- NOTE | 2023-11-18 10:28 | EKG12_ITS ---
Test Reason : preop Blood Pressure : / mmHG Vent. Rate : 066 BPM Atrial Rate : 066 BPM P-R Int : 150 ms QRS Dur : 086 ms QT Int : 410 ms P-R-T Axes : 064 027 069 degrees QTc Int : 429 ms Normal sinus rhythm Normal ECG When compared with ECG of 09-SEP-2023 11:29, No significant change was found Confirmed by Cristian Millan ([id number]), editor sound JODY LÓPEZ ([id number]) on 11/19/2023 6:36:22 AM Referred By: Latoya Michael Confirmed By:Cristian Millan
--- NOTE | 2023-11-18 10:41 | HP.PCM_ITS ---
HPI - General General Date of Admission: 11/18/23 Date of Service: 11/18/23 Chief Complaint: Stent removal HPI Narrative ABBIE NUNO, is a 57-year-old female who presented [facility] ED on 09/08/2023 with recent fever/chills and abnormal outpatient labs. Hospital course as noted below. Discharged home in stable condition on 09/09. She was diagnosed with acute cholangitis secondary to choledocholithiasis; history of cholecystectomy (2005). S/p ERCP on 09/08 that showed a dilated biliary tree, choledocholithiasis found with complete removal accomplished by biliary sphincterotomy and balloon extraction, 1 temporary stent placed into common bile duct. Did well postoperatively, passing gas and tolerating regular diet by morning of 09/09. Repeat labs on 09/09 with downtrending LFTs and otherwise stable. Treated with IV cefepime while inpatient, discharged on p.o. ciprofloxacin and Flagyl with plan to complete 7-day course of antibiotics total, stop date 09/13. [facility] Medical History (Updated 11/16/23 @ 14:42 by Raine Waddell) Wears glasses Thyroid disease Arthritis Back pain History of hiatal hernia Gastric reflux Non-smoker Hypothyroidism Home Medications ?Medication ?Instructions ?Recorded ?Last Taken ?Type cetirizine 5 mg-pseudoephedrine ER 1 tab PO DAILY PRN allergy symptoms 09/08/23 11/17/23 History 120 mg tablet,extended release,12hr ketotifen fumarate 0.025 % (0.035 1 drp EACH EYE DAILY PRN allergy 09/08/23 09/07/23 History %) eye drops (Allergy Eye symptoms (ketotifen)) levothyroxine 75 mcg tablet 75 mcg PO DAILY thyroid 09/08/23 11/17/23 History multivitamin 1 tab PO DAILY supplement 09/08/23 11/12/23 History omega 3-rcx-pot-fish oil 60 mg-90 1 cap PO DAILY supplement 09/08/23 11/12/23 History mg-500 mg capsule (Fish Oil) Ca 600 mg-D3 20 mcg-mag oxide 50 1 tab PO DAILY 11/16/23 11/12/23 History db-Hi-gdvkzg-manganese-boron tablet (Calcium 600-D3 Plus (mag-zinc)) fluticasone propionate 50 1 spray intranasal DAILY PRN 11/16/23 Unknown History mcg/actuation nasal allergy symptoms spray,suspension (24 Hour Allergy Relief) ibuprofen 200 mg tablet (Advil) 400 mg PO Q8H 11/16/23 11/12/23 History phenylephrine HCl 0.5 % nasal 1 spray intranasal Q8H PRN nasal 11/16/23 Unknown History spray (Otis-Synephrine congestion (phenylephrine)) polyethylene glycol 3350 17 17 g PO DAILY PRN constipation 11/16/23 Unknown History gram/dose oral powder (ClearLax) vitamin A 2,500 unit-vit C 100 1 cap PO TID 11/16/23 Unknown History mg-biotin 2,500 iyz-bcoo-ubjexm capsule (Rjdp-Jixq-Tesq (vit A,B-wzpwue-Sl-Cu)) Allergy/AdvReac Type Severity Reaction Status Date / Time No Known Allergies Allergy Verified 11/18/23 10:29 Surgical History (Updated 11/16/23 @ 14:42 by Raine Waddell) Hx of surgical procedure History of ERCP History of colonoscopy H/O arthroscopic knee surgery History of cholecystectomy Social History Smoking Status: Never smoker ROS ROS Narrative Constitutional: Reports fatigue and weakness. No fever. HEENT: Reports systems reviewed and no addt'l complaints, except as documented Respiratory/Chest: No acute shortness of breath or respiratory distress or wheezing. CVS: No chest pain or tightness Gastrointestinal: Mild RUQ abdominal discomfort. Denies coffee ground emesis, hematemesis or vomiting Genitourinary: Denies burning urination or new urinary tract symptoms Musculoskeletal: Denies acute joint pain or limited range of motion. No acute injury Neurologic: Denies seizure-like symptoms. skin: No ulcer. No rash Endocrinology: Reports systems reviewed and no addt'l complaints, except as documented Hematologic/Lymphatic: Reports systems reviewed and no addt'l complaints, except as documented Rest 14 ROS are negative except as mentioned in HPI Vital Signs Vital Signs Vital Signs: 11/18/23 10:32 11/18/23 10:32 Temperature 97.3 F L Temperature Source Temporal Pulse Rate 72 Respiratory Rate 18 Respiratory Pattern Normal Blood Pressure 106/69 Blood Pressure Mean 81 Blood Pressure Source Monitor Blood Pressure Position Semi-Fowlers Blood Pressure Location Right Arm Pulse Ox 100 Oxygen Delivery Method Room Air Weight Weight: 202 lb 9.6 oz Body Mass Index (BMI) 31.7 Physical Exam Const alert, oriented x3 and no apparent distress Constitutional Narrative: Pleasant middle-age female, obese, sitting up comfortably in bedside chair, conversing normally, no acute distress. General Appearance: cooperative and comfortable HEENT normocephalic, head/scalp atraumatic, hearing grossly normal bilaterally, nasal mucous membranes and turbinates normal and moist oral mucous membranes Eyes PERRL, EOMs intact bilaterally and conjunctivae normal Neck full ROM Chest inspection of chest normal Resp normal respiratory effort, normal air movement, no use of accessory muscles and clear to auscultation bilaterally Cardio regular rate, regular rhythm, no murmurs and peripheral pulses 2+ throughout GI GI Narrative: Mild right upper quadrant tenderness to palpation. Abdomen otherwise soft and nondistended. Normal bowel sounds. Stable. Back/Spine normal ROM Extremity normal to inspection, full ROM and no pedal edema Skin no rashes or lesions noted Neuro moves all extremities and no focal motor deficits Speech: speech normal Psych mental status grossly normal Assessment & Plan Assessment/Plan (1) Choledocholithiasis with acute cholecystitis: PLAN: Plan Patient is a 57-year-old female who presented [facility] ED on 09/08/2023 with recent fever/chills and abnormal outpatient labs. Acute cholangitis secondary to choledocholithiasis; history of cholecystectomy (2005) ? S/p ERCP on 09/08 that showed a dilated biliary tree, choledocholithiasis found with complete removal accomplished by biliary sphincterotomy and balloon extraction, 1 temporary stent placed into common bile duct. Patient is okay to DC home. Continue antibiotics for 7 days total. She will undergo repeat ERCP with stent removal. She was explained alternatives, risk, benefits including not withstanding bleeding, infection, sepsis, perforation, need for emergent urgent . She have an ASA of 3. To
--- NOTE | 2023-11-18 10:52 | PCM.PRE.AN2 ---
ASA Classification* ASA Classification ASA Classification: 1 Assessment & Plan Anesthesia* Anesthesia Assessment Anesthesia Assessment: Discussed sedation and/or anesthesia options, risks, benefits, and alternatives with patient/parents/legal guardian/POA. Questions invited. The patient/parents/legal guardian/POA seems to understand and agrees to proceed with anesthesia plan. Reviewed the physical assessment, medical history, allergy history and patient home medications list prior to surgery/procedure/anesthetic and documented any changes. Performed airway and anesthesia risk assessments. Anesthesia Type Anesthesia Type: MAC History Source History Obtained from:: Patient and Chart Anesthesia Focused Assessment* Temperature: 97.3 F Pulse Rate: 72 Blood Pressure: 106/69 Respiratory Rate: 18 Pulse Ox: 100 Oxygen Delivery Method: Room Air Airway Assessment Mouth opens: >3 cm Mallampati Score: I Teeth Condition: Caps/Crowns (Patient has 3 crowns on her molars all tight.) Neck Range of motion (ROM): Full ROM Pertinent Findings EKG Pertinent Findings:: November 18, 2023. Normal sinus rhythm. Focused Labs Anesthesia Preop lab: CBC WBC 6.4 K/mm3 (4.4-11.0) 10/09/23 18:51 RBC 4.52 M/mm3 (4.2-5.4) 10/09/23 18:51 Hgb 12.5 g/dL (12.0-15.0) 10/09/23 18:51 Hct 39.3 % (37-47) 10/09/23 18:51 Plt Count 220 K/mm3 (150-450) 10/09/23 18:51 CHEMISTRY Potassium 3.7 mmol/L (3.5-5.1) 10/09/23 18:51 Sodium 140 mmol/L (136-145) 10/09/23 18:51 Magnesium 2.3 mg/dL (1.6-2.6) 09/08/23 09:28 BUN 23 mg/dL (7-18) H 10/09/23 18:51 Creatinine 0.99 mg/dL (0.55-1.02) 10/09/23 18:51 Glucose 97 mg/dL (74-106) 10/09/23 18:51 TSH 3.21 uIU/mL (0.358-3.74) 09/09/23 05:20 COAG Urine Test Negative Negative 09/08/23 09:35 Pre-Assessment Diagnosis/Proposed Procedure Planned Operative Procedure(s): ERCP Anesthesia History Anesthesia History - table assembler metal: Anesthesia History - table assembler metal Hx Hospitalization Yes: 08/2023 ERCP 11/16/23 14:42 Any Problems With Anesthesia Yes: vomiting - does not 11/16/23 14:42 tolerate phenergan - but zofran works well Cholinesterase deficiency No 11/16/23 14:42 You/Your Family Experience No 11/16/23 14:42 fever (hyperthermia) with Relationship Recent Exposure to Contagious No 11/18/23 10:32 Disease Does patient have nerve No 11/16/23 14:42 stimulator Patient instructed to have device shut off --Does patient have Pacemaker No 11/18/23 10:32 or ICD? When Was Last Pacemaker Check QUESTION #4 FULL TEXT: You/Your Family Experience fever (hyperthermia) with Anesthesia Last Oral Intake Last Oral intake: Last Oral Intake NPO since 00:00 11/18/23 10:32 Meds taken in AM with sips of No 11/18/23 10:32 water? Meds patient instructed to take am of surgery PONV PONV - table assembler metal: PONV - table assembler metal Female Yes 11/16/23 14:42 HX of Motion Sickness Yes 11/16/23 14:42 HX of N/V After Surgery Yes 11/16/23 14:42 Non-Smoker Yes 11/16/23 14:42 Duration of Surgery greater No 11/16/23 14:42 than 60 minutes Number of Risk Factors 4 11/16/23 14:42 PONV Score Severe Risk 11/16/23 14:42 Height & Weight Height & Weight: Anesthesia: Height & Weight Height 5 ft 7 in 11/18/23 10:32 Weight: 91.898 kg 11/18/23 10:32 Body Mass Index (BMI) 31.7 11/18/23 10:32 Respiratory Assessment Respiratory Assessment - table assembler metal: Respiratory Tract Infection Hx - table assembler metal Hx Respiratory Tract Infection No 11/16/23 14:42 STOP Sleep Apnea STOP Sleep Apnea - table assembler metal: STOP Sleep Apnea - table assembler metal Hx Hypertension No 11/16/23 14:42 Hx Sleep Apnea No 11/16/23 14:42 CPAP BIPAP Do you snore loudly (louder Yes 11/16/23 14:42 than talking or can be heard Do you often feel tired/ No 11/16/23 14:42 fatigued/ sleepy during daytime? Has anyone observed you stop No 11/16/23 14:42 breathing during sleep? STOP Results Negative 11/16/23 14:42 QUESTION #5 FULL TEXT : Do you snore loudly (louder than talking or can be heard through closed doors)? Tobacco Use History Tobacco Use History - table assembler metal: Tobacco Use History - table assembler metal Tobacco Use Smoking Status Never smoker 11/16/23 14:42 Hx Tobacco Use No 11/16/23 14:42 Years Smoking Packs Smoked per Day Smoking Cessation Date was within the last 15 years Hx Smoking Cessation Date Hx Smoking Cessation Counseling Hematologic Medial History Hematologic Hx - table assembler metal: Hematologic Medical Hx - taker off drying kiln Hx of Blood Transfusion No 11/16/23 14:42 Hx of Transfusion in last 3 No 11/16/23 14:42 Months Date of Last Transfusion (if within last 3 months) Ever experience any problems No 11/16/23 14:42 with transfusion(s)? Specify any problems Hx of Preganancy in last 3 No 11/16/23 14:42 Months Nurse Filling Out Transfusion VCHRISTIN 11/16/23 14:42 & Questions: Date: 11/16/23 11/16/23 14:42 Time: 14:44 11/16/23 14:42 Patient unable to answer at this time (ie. confused, unrespo /Reproduction History /Reproductive History - table assembler metal: /Reproductive Hx- table assembler metal Hx Now No 11/16/23 14:42 Gestational Age (in weeks): EDC: Hx Hx Para Hx Section SAB No 11/16/23 14:42 Active Medications Active Medications: Current Medications Generic Name Dose Route Start Last Admin Trade Name Freq PRN Reason Stop Dose Admin Lactated Ringer's 1,000 mls @ 15 mls/hr 11/18/23 10:15 IV .Q48H TOMASA PFSH Medical History Wears glasses Thyroid disease Arthritis Back pain History of hiatal hernia Gastric reflux Non-smoker Hypothyroidism Home Medications ?Medication ?Instructions ?Recorded ?Last Taken ?Type cetirizine 5 mg-pseudoephedrine ER 1 tab PO DAILY PRN allergy symptoms 09/08/23 11/17/23 History 120 mg tablet,extended release,12hr ketotifen fumarate 0.025 % (0.035 1 drp EACH EYE DAILY PRN allergy 09/08/23 09/07/23 History %) eye drops (Allergy Eye symptoms (ketotifen)) levothyroxine 75 mcg tablet 75 mcg PO DAILY thyroid 09/08/23 11/17/23 History multivitamin 1 tab PO DAILY supplement 09/08/23 11/12/23 History omega 2-mrl-vvu-fish oil 60 mg-90 1 cap PO DAILY supplement 09/08/23 11/12/23 History mg-500 mg capsule (Fish Oil) Ca 600 mg-D3 20 mcg-mag oxide 50 1 tab PO DAILY 11/16/23 11/12/23 History mc-Wg-vajvku-manganese-boron tablet (Calcium 600-D3 Plus (mag-zinc)) fluticasone propionate 50 1 spray intranasal DAILY PRN 11/16/23 Unknown History mcg/actuation nasal allergy symptoms spray,suspension (24 Hour Allergy Relief) ibuprofen 200 mg tablet (Advil) 400 mg PO Q8H 11/16/23 11/12/23 History phenylephrine HCl 0.5 % nasal 1 spray intranasal Q8H PRN nasal 11/16/23 Unknown History spray (Otis-Synephrine congestion (phenylephrine)) polyethylene glycol 3350 17 17 g PO DAILY PRN constipation 11/16/23 Unknown History gram/dose oral powder (ClearLax) vitamin A 2,500 unit-vit C 100 1 cap PO TID 11/16/23 Unknown History mg-biotin 2,500 yex-xgsk-awmdcf capsule (Ktbt-Jhad-Jdyr (vit A,A-yfvmea-Uz-Cu)) Allergy/AdvReac Type Severity Reaction Status Date / Time No Known Allergies Allergy Verified 11/18/23 10:29 Surgical History Hx of surgical procedure History of ERCP History of colonoscopy H/O arthroscopic knee surgery History of cholecystectomy Social History Smoking Status: Never smoker Review of Systems (Anesthesia) ROS Narrative System reviewed and no additional complaints, except as documented.
--- NOTE | 2023-11-18 11:38 | OP.CCLET_ITS ---
11/18/2023 Drake Lilly Re : ERCP procedure for Yris Rowell Dear Alec This procedure was performed on October. My impressions and recommendations are as follows: Impressions : - Choledocholithiasis was found. Removal was not accomplished; no stent was inserted. - A biliary sphincterotomy was performed. - The biliary tree was swept. - One stent was removed from the biliary tree. - One stent was removed from the pancreatic duct. Recommendations : My findings are described in the full procedure note, which is enclosed. If I can be of further assistance, please feel free to contact me at . Sincerely, Titus Varma DO 11/18/2023 11:38:24 AM This report has been signed electronically.
--- NOTE | 2023-11-18 11:38 | OP.ERCP_ITS ---
Patient Name: Yris Rowell Procedure Date: 11/18/2023 10:49 AM Date of : 1965 Age: 57 Procedure: ERCP Indications: Stent removal Providers: Titus Varma DO Medicines: Monitored Anesthesia Care Patient Profile: This is a 57 year old female. Refer to note in patient chart for documentation of history and physical. Patient has symptoms of chronic right upper quadrant abdominal pain. She is status post laparoscopic cholecystectomy. Complications: No immediate complications. Procedure: Pre-Anesthesia Assessment: - Prior to the procedure, a History and Physical was performed, and patient medications and allergies were reviewed. The patient is competent. The risks and benefits of the procedure and the sedation options and risks were discussed with the patient. All questions were answered and informed consent was obtained. Patient identification and proposed procedure were verified by the physician in the pre-procedure area. Mental Status Examination: alert and oriented. Airway Examination: normal oropharyngeal airway and neck mobility. Respiratory Examination: clear to auscultation. CV Examination: normal. Prophylactic Antibiotics: The patient does not require prophylactic antibiotics. Prior Anticoagulants: The patient has taken no anticoagulant or antiplatelet agents except for NSAID medication. ASA Grade Assessment: II - A patient with mild systemic disease. After reviewing the risks and benefits, the patient was deemed in satisfactory condition to undergo the procedure. The anesthesia plan was to use monitored anesthesia care (MAC). Immediately prior to administration of medications, the patient was re-assessed for adequacy to receive sedatives. The heart rate, respiratory rate, oxygen saturations, blood pressure, adequacy of pulmonary ventilation, and response to care were monitored throughout the procedure. The physical status of the patient was re-assessed after the procedure. After obtaining informed consent, the scope was passed under direct vision. Throughout the procedure, the patient's blood pressure, pulse, and oxygen saturations were monitored continuously. The Duodenoscope was introduced through the mouth, and advanced to the duodenum and used to inject contrast into the bile duct and ventral pancreatic duct. The ERCP was accomplished without difficulty. The patient tolerated the procedure well. Scope In: 11:18:49 AM Scope Out: 11:29:03 AM Total Procedure Duration Time 0 hours 10 minutes 14 seconds Findings: The airplane pilot photogrammetry film was normal. The esophagus was successfully intubated under direct vision. The scope was advanced to a normal major papilla in the descending duodenum without detailed examination of the pharynx, larynx and associated structures, and upper GI tract. The upper GI tract was grossly normal. The bile duct was deeply cannulated with the short-nosed traction sphincterotome. Contrast was injected. I personally interpreted the bile duct and pancreatic duct images. There was brisk flow of contrast through the ducts. Image quality was excellent. Contrast extended to the hepatic ducts. Contrast extended to the entire biliary tree. Contrast extended to the pancreatic duct. Contrast extended to the proximal pancreatic duct. Opacification of the entire biliary tree except for the cystic duct and gallbladder was successful. The maximum diameter of the ducts was 10 mm. A long 0.025 inch Jagwire was passed into the biliary tree. A 5 mm biliary sphincterotomy was made with a traction (standard) sphincterotome using ERBE electrocautery. There was no post-sphincterotomy bleeding. The biliary tree was swept with a 15 mm balloon starting at the bifurcation. Sludge was swept from the duct. One stone was removed. All stones remained. One stent was removed from the biliary tree using a snare and sent for cytology. One stent was removed from the pancreatic duct using a snare and sent for cytology. The stent was found to be occluded via the water column test. Impression: - Choledocholithiasis was found. Removal was not accomplished; no stent was inserted. - A biliary sphincterotomy was performed. - The biliary tree was swept. - One stent was removed from the biliary tree. - One stent was removed from the pancreatic duct. Procedure Code(s): --- Professional --- 22423, Endoscopic retrograde cholangiopancreatography (ERCP); with removal of foreign body(s) or stent(s) from biliary/pancreatic duct(s) 95823, Endoscopic retrograde cholangiopancreatography (ERCP); with removal of calculi/debris from biliary/pancreatic duct(s) 40676, Endoscopic retrograde cholangiopancreatography (ERCP); with sphincterotomy/papillotomy 07815, 26, Combined endoscopic catheterization of the biliary and pancreatic ductal systems, radiological supervision and interpretation CPT copyright 2021 [employer]. All rights reserved. The codes documented in this report are preliminary and upon mellowing machine operator review may be revised to meet current compliance requirements. Titus Varma DO 11/18/2023 11:38:24 AM This report has been signed electronically. Number of Addenda: 0 Note Initiated On: 11/18/2023 10:49 AM
--- NOTE | 2023-11-18 11:42 | POSTOPAN2_ITS ---
Anesthesia Postop Eval I Sum Postop Eval Completion status Anesthesia document: Postop Eval 1 completed: Yes Anesthesia Postop Eval I Summary Anesthesia Postop Eval I Summary: Anesthesia Postop Eval I: Assessment Summary Airway patent Yes 11/18/23 11:42 OPTICAL MECHANIC APPRENTICE.MDOT Spontaneous unlabored Yes 11/18/23 11:42 OPTICAL MECHANIC APPRENTICE.MDOT respirations Mental status Awake,Calm 11/18/23 11:42 OPTICAL MECHANIC APPRENTICE.MDOT nausea No 11/18/23 11:42 OPTICAL MECHANIC APPRENTICE.MDOT Vomiting No 11/18/23 11:42 OPTICAL MECHANIC APPRENTICE.MDOT Anesthesia Postop Eval I: Fluid Summary Crystalloid volume administer 300 11/18/23 11:42 OPTICAL MECHANIC APPRENTICE.MDOT (ml) Colloids volume administered ( ml) Blood Product volume administered (ml) Total IV fluid infused 300 11/18/23 11:42 OPTICAL MECHANIC APPRENTICE.MDOT Anesthesia Postop Eval I: Summary Notes Anesthesia Complication No 11/18/23 11:42 OPTICAL MECHANIC APPRENTICE.MDOT Anesthesia Complication Comment: Post-operative progress note Anesthesia: Postop Eval II Evaluation Mental status: Awake and Calm Pain Level: 0 nausea: No Vomiting: No Complications Anesthesia Complication: No
--- NOTE | 2023-11-18 11:42 | PCM.POST.ANE ---
Anesthesia: Postop Eval I Current Vital Signs Temperature: 97.4 F Pulse Rate: 73 Blood Pressure: 134/71 Respiratory Rate: 16 Pulse Ox: 96 Oxygen Delivery Method: Room Air Assessment Airway patent: Yes Spontaneous unlabored respirations: Yes Mental status: Awake and Calm nausea: No Vomiting: No Anesthesia Complication: No Fluid Hydration Crystalloid volume administer (ml): 300 Total IV fluid infused: 300 Progress Note Anesthesia document: Postop Eval 1 completed: Yes
--- NOTE | 2023-11-18 11:42 | PCM.POSTANE2 ---
Anesthesia Postop Eval I Sum Postop Eval Completion status Anesthesia document: Postop Eval 1 completed: Yes Anesthesia Postop Eval I Summary Anesthesia Postop Eval I Summary: Anesthesia Postop Eval I: Assessment Summary Airway patent Yes 11/18/23 11:42 INDUSTRIAL RELATIONS OFFICER.MDOT Spontaneous unlabored Yes 11/18/23 11:42 INDUSTRIAL RELATIONS OFFICER.MDOT respirations Mental status Awake,Calm 11/18/23 11:42 INDUSTRIAL RELATIONS OFFICER.MDOT nausea No 11/18/23 11:42 INDUSTRIAL RELATIONS OFFICER.MDOT Vomiting No 11/18/23 11:42 INDUSTRIAL RELATIONS OFFICER.MDOT Anesthesia Postop Eval I: Fluid Summary Crystalloid volume administer 300 11/18/23 11:42 INDUSTRIAL RELATIONS OFFICER.MDOT (ml) Colloids volume administered ( ml) Blood Product volume administered (ml) Total IV fluid infused 300 11/18/23 11:42 INDUSTRIAL RELATIONS OFFICER.MDOT Anesthesia Postop Eval I: Summary Notes Anesthesia Complication No 11/18/23 11:42 INDUSTRIAL RELATIONS OFFICER.MDOT Anesthesia Complication Comment: Post-operative progress note Anesthesia: Postop Eval II Evaluation Mental status: Awake and Calm Pain Level: 0 nausea: No Vomiting: No Complications Anesthesia Complication: No
--- NOTE | 2023-11-18 14:40 | POSTOPAN2_ITS ---
Anesthesia Postop Eval I Sum Postop Eval Completion status Anesthesia document: Postop Eval 1 completed: Yes Anesthesia Postop Eval I Summary Anesthesia Postop Eval I Summary: Anesthesia Postop Eval I: Assessment Summary Airway patent Yes 11/18/23 11:42 ASSISTANT COUNTY ATTORNEY.MDOT Spontaneous unlabored Yes 11/18/23 11:42 ASSISTANT COUNTY ATTORNEY.MDOT respirations Mental status Awake,Calm 11/18/23 11:42 ASSISTANT COUNTY ATTORNEY.MDOT nausea No 11/18/23 11:42 ASSISTANT COUNTY ATTORNEY.MDOT Vomiting No 11/18/23 11:42 ASSISTANT COUNTY ATTORNEY.MDOT Anesthesia Postop Eval I: Fluid Summary Crystalloid volume administer 300 11/18/23 11:42 ASSISTANT COUNTY ATTORNEY.MDOT (ml) Colloids volume administered ( ml) Blood Product volume administered (ml) Total IV fluid infused 300 11/18/23 11:42 ASSISTANT COUNTY ATTORNEY.MDOT Anesthesia Postop Eval I: Summary Notes Anesthesia Complication No 11/18/23 11:42 ASSISTANT COUNTY ATTORNEY.MDOT Anesthesia Complication Comment: Post-operative progress note Anesthesia: Postop Eval II Evaluation Mental status: Awake and Calm Pain Level: 0 nausea: No Vomiting: No Complications Anesthesia Complication: No
--- NOTE | 2023-11-18 14:40 | PCM.POSTANE2 ---
Anesthesia Postop Eval I Sum Postop Eval Completion status Anesthesia document: Postop Eval 1 completed: Yes Anesthesia Postop Eval I Summary Anesthesia Postop Eval I Summary: Anesthesia Postop Eval I: Assessment Summary Airway patent Yes 11/18/23 11:42 STEAM HEATING INSTALLER.MDOT Spontaneous unlabored Yes 11/18/23 11:42 STEAM HEATING INSTALLER.MDOT respirations Mental status Awake,Calm 11/18/23 11:42 STEAM HEATING INSTALLER.MDOT nausea No 11/18/23 11:42 STEAM HEATING INSTALLER.MDOT Vomiting No 11/18/23 11:42 STEAM HEATING INSTALLER.MDOT Anesthesia Postop Eval I: Fluid Summary Crystalloid volume administer 300 11/18/23 11:42 STEAM HEATING INSTALLER.MDOT (ml) Colloids volume administered ( ml) Blood Product volume administered (ml) Total IV fluid infused 300 11/18/23 11:42 STEAM HEATING INSTALLER.MDOT Anesthesia Postop Eval I: Summary Notes Anesthesia Complication No 11/18/23 11:42 STEAM HEATING INSTALLER.MDOT Anesthesia Complication Comment: Post-operative progress note Anesthesia: Postop Eval II Evaluation Mental status: Awake and Calm Pain Level: 0 nausea: No Vomiting: No Complications Anesthesia Complication: No
== END 2023-11-18 13:37 | disposition home or self-care (01) ==
LOC: EN 10:08 → AC 10:12
PROVIDERS: PCP Nurse Practitioner Family; Referring Provider Nurse Practitioner Family; Visit Provider Internal Medicine Gastroenterology
PROC: (CPT 43260; principal; 2023-11-18 10:55)
DX: K80.42 Calculus of bile duct with acute cholecystitis without obstruction (principal); Z79.890 Hormone replacement therapy; E03.9 Hypothyroidism, unspecified; Z90.49 Acquired absence of other specified parts of digestive tract
CPT/HCPCS: 43262; 43264; 43275; 74330; 76000; 88108; 88305; 88313; 93005; J7120; J2405

== ENCOUNTER 2024-11-14 20:21 | Emergency (ER) | payer OTHER, SELFPAY ==
[2024-11-14 20:22] VITALS: BP 186/84; PULSE 118; RESP 20; TEMP 36.8; O2SAT 98; BMI 31.6
[2024-11-14] MEDS: Oxymetazoline 0.05% 1 SPRAY SPRAY.BTL NASAL (20:48)
--- NOTE | 2024-11-14 20:55 | EX.ED.DYSGE1 ---
HPI History of Present Illness Chief Complaint: Nosebleed Informant: patient Narrative Narrative: Problem: Recurrent left-sided epistaxis an hour prior to arrival. Patient getting ready for bed. Denied digital manipulation or any blowing. She has seasonal allergies she uses nasal spray. She uses this morning had a slight bleed that was controlled at home. Denies any blood thinners. States bloats up in her throat. No cough, no dyspnea. Prior similar symptoms: Yes PFSH [facility] Medical History Wears glasses Thyroid disease Arthritis Back pain History of hiatal hernia Gastric reflux Non-smoker Hypothyroidism Home Medications ?Medication ?Instructions ?Recorded ?Last Taken ?Type cetirizine 5 mg-pseudoephedrine ER 1 tab PO DAILY PRN allergy symptoms 09/08/23 11/17/23 History 120 mg tablet,extended release,12hr ketotifen fumarate 0.025 % (0.035 1 drp EACH EYE DAILY PRN allergy 09/08/23 09/07/23 History %) eye drops (Allergy Eye symptoms (ketotifen)) levothyroxine 75 mcg tablet 75 mcg PO DAILY thyroid 09/08/23 11/17/23 History multivitamin 1 tab PO DAILY supplement 09/08/23 11/12/23 History omega 2-dhf-wnd-fish oil 60 mg-90 1 cap PO DAILY supplement 09/08/23 11/12/23 History mg-500 mg capsule (Fish Oil) calcium 600 mg-D3 20 mcg-magnesium 1 tab PO DAILY 11/16/23 11/12/23 History 50 hg-Xk-gasmzh-dena-boron tablet (Calcium 600-D3 Plus (mag-zinc)) fluticasone propionate 50 1 spray intranasal DAILY PRN 11/16/23 Unknown History mcg/actuation nasal allergy symptoms spray,suspension (24 Hour Allergy Relief) ibuprofen 200 mg tablet (Advil) 400 mg PO Q8H 11/16/23 11/12/23 History phenylephrine HCl 0.5 % nasal 1 spray intranasal Q8H PRN nasal 11/16/23 Unknown History spray (Otis-Synephrine congestion (phenylephrine)) polyethylene glycol 3350 17 17 g PO DAILY PRN constipation 11/16/23 Unknown History gram/dose oral powder (ClearLax) vitamin A 2,500 unit-vit C 100 1 cap PO TID 11/16/23 Unknown History mg-biotin 2,500 qcg-xryg-achhrv capsule (Gfxp-Uflv-Qgiu (vit A,N-lbrfyi-Zs-Cu)) Allergy/AdvReac Type Severity Reaction Status Date / Time No Known Allergies Allergy Verified 11/14/24 20:23 Surgical History Hx of surgical procedure History of ERCP History of colonoscopy H/O arthroscopic knee surgery History of cholecystectomy Social History Smoking Status: Never smoker ROS ROS ED Constitutional Constitutional ED: Denies fever(s) ENT ENT ED: Reports other Details: Nosebleed Cardiovascular Cardiovascular: Denies chest pain Respiratory/Chest Respiratory/Chest: Denies cough Gastrointestinal Gastrointestinal: Denies diarrhea or vomiting Musculoskeletal Musculoskeletal: Denies none Integumentary Denies rash or wounds Neurologic Neurologic: Denies weakness EXAM Physical Exam Const Vital Signs: 11/14/24 20:22 Temperature 98.3 F Temperature Source Oral Pulse Rate 118 H Respiratory Rate 20 H Blood Pressure 186/84 H Blood Pressure Mean 118 Pulse Ox 98 Oxygen Delivery Method Room Air Positive well nourished and well developed General Appearance ED: well developed and NAD HEENT Reports moist mucous membranes HEENT Narrative: Evaluated blood in both naris however clot appeared more in the left nostril. No active bleeding posterior pharynx. normocephalic and atraumatic Eyes General Eye ED: Yes normal appearance of both eyes Neck full ROM Chest Wall Chest: Negative for tenderness Resp normal respiratory effort and normal air movement Effort and Inspection: symmetric chest movement; Negative for respiratory distress Cardio regular rhythm and no murmurs Peripheral Pulses: pulses 2+ throughout GI normal to inspection, nondistended, normoactive bowel sounds and non-tender Palpation: Negative for guarding or rebound tenderness present Extremity normal to inspection General Extremety ED: Negative for edema or tenderness General Extremity: Negative for edema Neuro oriented x3 and no sensory deficits noted Sensorium / Orientation: awake and alert Skin no rashes or lesions noted and no wounds MDM MDM MDM Narrative Medical decision making narrative: Interventions / MDM: Differential diagnosis: Anterior epistaxis. Diagnosis considered but do not suspect: N/A My EKG interpretation: N/A Imaging independently reviewed and interpreted by myself: N/A External documents reviewed: N/A Test considered but not ordered:N/A ED course: Patient with epistaxis on the left side. Clots were removed, appear to be irritation along the left septum no ulcerations were noted. Afrin on cotton was placed since along with septum, nasal clamp placed. Will reevaluate. 2117: Removal of the cotton with Afrin there was no clots behind this. However reevaluate septum there appeared to be small areas of bleeding. Replaced cotton with Afrin, will reevaluate. 2233: No rebleed. she is ambulate in the hallway by myself with no bleeding. Sent home with a nasal clamp. Discussed that rebleeds clamp for 30 minutes. If continues to bleed return to the ED for reevaluation. She is given follow-up with ENT. All questions were answered. Re-evaluation: stable Disposition discussed with patient/family/significant other: Patient and family Case discussed with consulting clinician: N/A This note was generated with [email or web address] dictation software. It may contain incorrect words, spelling, and punctuation that were not noted in checking the note before signing. Discharge Plan Triage Chief Complaint: Nosebleed ED Provider: Reji Guzman Dx/Rx/DC Orders Clinical Impression: Left-sided epistaxis, Seasonal allergies Instructions: ED Epistaxis (Adult) Prescriptions: No Action fluticasone propionate [24 Hour Allergy Relief] 50 mcg/actuation spray,suspension 1 spray intranasal DAILY PRN (Reason: allergy symptoms) Rx Instructions: administer into each nostril Ca-D3-mag ap-enfl-goa-nicolás-bor [Calcium 600-D3 Plus (mag-zinc)] 600 mg calcium- 20 mcg-50 mg tablet 1 tab PO DAILY Xfvi-Pnqt-Hwyi(vit A,C-biotin) 2,500 unit-100 mg-2,500 mcg capsule 1 cap PO TID polyethylene glycol 3350 [ClearLax] 17 gram/dose powder 17 g PO DAILY PRN (Reason: constipation) Otis-Synephrine (phenylephrine) 0.5 % spray,non-aerosol 1 spray intranasal Q8H PRN (Reason: nasal congestion) ibuprofen [Advil] 200 mg tablet 400 mg PO Q8H levothyroxine 75 mcg tablet 75 mcg PO DAILY ketotifen fumarate [Allergy Eye (ketotifen)] 0.025 % (0.035 %) drops 1 drp EACH EYE DAILY PRN (Reason: allergy symptoms) omega 4-vpk-ikg-fish oil [Fish Oil] 60-90-500 mg capsule 1 cap PO DAILY multivitamin Tablet 1 tab PO DAILY cetirizine-pseudoephedrine 5-120 mg tablet extended release 12 hr 1 tab PO DAILY PRN (Reason: allergy symptoms) Primary Care Provider: Ton Baptiste Referrals: Bogdan Hall MD [Med Staff - Active Staff] - 5-7 Days Ton Baptiste MD [Primary Care Provider] - Print Language: Lithuanian Disposition Disposition: Home, Self Care Discharge Date/Time: 11/14/24 22:40
[2024-11-14 22:39] VITALS: BP 149/77; PULSE 79; RESP 18; TEMP 36.6; O2SAT 98
== END 2024-11-14 22:40 | disposition home or self-care (01) ==
PROVIDERS: Emergency Provider Emergency Medicine; PCP Family Medicine; Visit Provider Emergency Medicine
DX: R04.0 Epistaxis (principal); J30.2 Other seasonal allergic rhinitis; E03.9 Hypothyroidism, unspecified; Z79.890 Hormone replacement therapy; Z90.49 Acquired absence of other specified parts of digestive tract
CPT/HCPCS: 30901; 99282